=== PATIENT | female | born 1965 | race Caucasian/White ===

== ENCOUNTER 2017-07-07 06:51 | Day surgery (SDC) | payer OTHER, BC, SELFPAY ==
[2017-07-03 09:47] VITALS: BMI 36.1
[2017-07-07] VITALS (13 sets, daily range): BP systolic 102–189; BP diastolic 49–85; PULSE 69–94; RESP 11–18; TEMP 36.7–37.3; O2SAT 95–99
--- NOTE | 2017-07-07 08:05 | HMH.PROC ---
[facility] Procedure Note Procedure Note:: Colonoscopy Procedure Report: Colonoscopy with cold biopsy removal and monopolar ablation to destruction of hemorrhoids Endoscopist: Caleb Piedra II, MD Referring physician: Vinny Koo MD Date of Procedure: July 07, 2017 Equipment: Olympus 180 variable stiffness pediatric colonoscope Sedation: Fentanyl 200 mg IV/ Versed 9 mg IV Indication: Mrs. Flores is a 52-year-old female who is here for initial screening colonoscopy. The patient does have a history of an anal fissure and hemorrhoids. She does have worsening of the fissure over the last few weeks and has had some heavy bleeding that was exacerbated by her Xarelto. She has been taking MiraLAX and does report 2-3 bowel movements daily with obstipation/incomplete evacuation. The patient did have breast cancer in October 2015. She did have lumpectomy and adjuvant radiation therapy. She did not take chemotherapy. The patient reports no abdominal pain, weight loss or change in bowel habits. She does have a paternal first cousin with colon cancer. Procedure: Prior to the procedure, a history and physical exam was performed, and patient's medications and allergies were reviewed. The risks, benefits and alternatives of the sedation and procedure were discussed with the patient. All questions were answered and informed consent was obtained. The patient was brought to the procedure room. Patient identification and proposed procedure were verified by the physician and the nurse. The patient was placed in a left lateral decubitus position and the scope was passed under direct vision. Throughout the procedure, the patient's blood pressure, pulse, and oxygen saturations were monitored continuously. The colonoscopy was accomplished without difficulty. The patient tolerated the procedure well. Findings: On digital rectal examination there was increased rectal tone with minor anal stenosis. There was a healing posterior midline anal fissure. There were no external hemorrhoids. The colonoscope was introduced through the anal canal to the rectum and advanced to the cecum. The ileocecal valve and appendiceal orifice were identified. The scope was advanced a short distance into the ileum which appeared grossly normal. The scope was then withdrawn into the colon. The cecum, ascending and transverse colon and mucosa were grossly normal. There were scattered diverticuli throughout the descending and sigmoid colon (LEFT colon). The rectum itself had a diminutive 4-5 mm polyp that was removed via cold biopsy. Upon retroflexion within the rectum there were grade 1 internal hemorrhoids. The hemorrhoids were ablated using monopolar ablation to destruction of 4 columns. Impression: 1. Diminutive rectal polyp 2. Mild left-sided diverticulosis 3. Grade 1 internal hemorrhoids status post monopolar ablation to destruction 4. Posterior midline anal fissure with some increased anal sphincter tone Plan: I will follow-up the polyp histology. I would like for the patient to resume a fiber bowel regimen with MiraLAX plus fiber (bulk). I will initiate nitroglycerin ointment for her fissure. I do believe that the polyp is hyperplastic and if so, she will not require surveillance again for 10 years.
--- NOTE | 2017-07-07 08:33 | P.PCN_ITS ---
[facility] Procedure Note Procedure Note:: Colonoscopy Procedure Report: Colonoscopy with cold biopsy removal and monopolar ablation to destruction of hemorrhoids Endoscopist: Caleb Peidra II, MD Referring physician: Vinny Koo MD Date of Procedure: July 07, 2017 Equipment: Olympus 180 variable stiffness pediatric colonoscope Sedation: Fentanyl 200 mg IV/ Versed 9 mg IV Indication: Mrs. Flores is a 52-year-old female who is here for initial screening colonoscopy. The patient does have a history of an anal fissure and hemorrhoids. She does have worsening of the fissure over the last few weeks and has had some heavy bleeding that was exacerbated by her Xarelto. She has been taking MiraLAX and does report 2-3 bowel movements daily with obstipation/ incomplete evacuation. The patient did have breast cancer in October 2015. She did have lumpectomy and adjuvant radiation therapy. She did not take chemotherapy. The patient reports no abdominal pain, weight loss or change in bowel habits. She does have a paternal first cousin with colon cancer. Procedure: Prior to the procedure, a history and physical exam was performed, and patient' s medications and allergies were reviewed. The risks, benefits and alternatives of the sedation and procedure were discussed with the patient. All questions were answered and informed consent was obtained. The patient was brought to the procedure room. Patient identification and proposed procedure were verified by the physician and the nurse. The patient was placed in a left lateral decubitus position and the scope was passed under direct vision. Throughout the procedure, the patient's blood pressure, pulse, and oxygen saturations were monitored continuously. The colonoscopy was accomplished without difficulty. The patient tolerated the procedure well. Findings: On digital rectal examination there was increased rectal tone with minor anal stenosis. There was a healing posterior midline anal fissure. There were no external hemorrhoids. The colonoscope was introduced through the anal canal to the rectum and advanced to the cecum. The ileocecal valve and appendiceal orifice were identified. The scope was advanced a short distance into the ileum which appeared grossly normal. The scope was then withdrawn into the colon. The cecum, ascending and transverse colon and mucosa were grossly normal. There were scattered diverticuli throughout the descending and sigmoid colon (LEFT colon). The rectum itself had a diminutive 4-5 mm polyp that was removed via cold biopsy. Upon retroflexion within the rectum there were grade 1 internal hemorrhoids. The hemorrhoids were ablated using monopolar ablation to destruction of 4 columns. Impression: 1. Diminutive rectal polyp 2. Mild left-sided diverticulosis 3. Grade 1 internal hemorrhoids status post monopolar ablation to destruction 4. Posterior midline anal fissure with some increased anal sphincter tone Plan: I will follow-up the polyp histology. I would like for the patient to resume a fiber bowel regimen with MiraLAX plus fiber (bulk). I will initiate nitroglycerin ointment for her fissure. I do believe that the polyp is hyperplastic and if so, she will not require surveillance again for 10 years.
== END 2017-07-07 09:35 | disposition home or self-care (01) ==
LOC: OUTP 06:52
PROVIDERS: Family Provider Internal Medicine; PCP Internal Medicine; Visit Provider Internal Medicine Gastroenterology
PROC: 0DJD8ZZ Inspection of Lower Intestinal Tract, Via Natural or Artificial Opening Endoscopic (ICD-10-PCS; CPT 45378; principal; 2017-07-07 08:00)
DX: Z12.11 Encounter for screening for malignant neoplasm of colon (principal); K60.1 Chronic anal fissure; K62.1 Rectal polyp; K64.0 First degree hemorrhoids; K57.30 Diverticulosis of large intestine without perforation or abscess without bleeding
CPT/HCPCS: 45380; 46930; 99152; 99153

== ENCOUNTER → 2017-09-10 08:10 | Outpatient (CLI) | payer OTHER, BC, SELFPAY ==
[2017-09-11 09:11] LABS: FSH 27.8 mIU/mL (.); LH 16.1 mIU/mL (.)
== END ==
PROVIDERS: Visit Provider Nurse Practitioner Obstetrics & Gynecology
DX: N93.9 Abnormal uterine and vaginal bleeding, unspecified (principal); N95.0 Postmenopausal bleeding
CPT/HCPCS: 36415; 83001; 83002

== ENCOUNTER → 2017-10-28 07:54 | Outpatient (CLI) | payer OTHER, BC, SELFPAY ==
[2017-10-28 09:52] LABS: Free Thyroxine Index 3.2 ug/dL (5.93-13.13); T4 (Thyroxine) 9.6 ug/dl (4.7-13.3); Triiodothryronine (T3) Uptake 33 % (31-39)
[2017-10-30 21:12] LABS: Triiodothyronine (T3) Free 3.6 pg/mL (2.0-4.4)
== END ==
PROVIDERS: Family Provider Internal Medicine; PCP Internal Medicine; Visit Provider Nurse Practitioner Obstetrics & Gynecology
DX: Z01.419 Encounter for gynecological examination (general) (routine) without abnormal findings (principal)
CPT/HCPCS: 84436; 84479; 84481

== ENCOUNTER → 2017-12-11 08:25 | Outpatient (POV) | payer OTHER, BC, SELFPAY | PROVIDERS: Family Provider Internal Medicine; PCP Internal Medicine; Visit Provider Dermatology | DX: Z00.00 Encounter for general adult medical examination without abnormal findings (principal) ==

== ENCOUNTER 2020-03-10 13:44 | Outpatient (RCR) | payer OTHER, BC, SELFPAY | END 2020-03-10 14:20 | disposition home or self-care (01) | LOC: PT 13:44 | PROVIDERS: Visit Provider Internal Medicine | DX: G56.02 Carpal tunnel syndrome, left upper limb (principal) ==

== ENCOUNTER → 2020-12-25 09:56 | Outpatient (CLI) | payer OTHER, BC, SELFPAY ==
--- NOTE | 2020-12-25 09:58 | XR_ITS ---
PROCEDURE: XR DEXA AXIAL SKELETON CLINICAL HISTORY: POST MENAPAUSAL COMPARISON: CR,DX BONE3 BONE DENSITOMETRY(HIP:LT SPINE from 04/15/2016 FINDINGS: The right hip BMD is 0.612 with a T-score of -2.1. The left hip BMD is 0.637 with a T-score of -1.9. The lumbar spine BMD is 0.816 with a T-score of -2.1. FRAX score: Major osteoporotic fracture: 8.2 percent Hip fracture: 1.1 percent IMPRESSION: This patient is considered osteopenic according to the World Health Organization criteria. Bone density is between 10 and 25 percent below young normal. Fracture risk is moderate. Treatment is advised. Based on these results a follow-up exam is recommended in 2 year. Dictated by: Maria Dolores Stokes 12/25/2020 13:53 Maria Dolores Stokes in [place] 12/25/2020 13:53
== END ==
PROVIDERS: PCP Internal Medicine; Visit Provider Internal Medicine
DX: M85.89 Other specified disorders of bone density and structure, multiple sites (principal); Z78.0 Asymptomatic menopausal state
CPT/HCPCS: 77080

== ENCOUNTER → 2021-09-18 10:30 | Outpatient (POV) | payer OTHER, BC, SELFPAY | PROVIDERS: Visit Provider Dermatology | DX: Z00.00 Encounter for general adult medical examination without abnormal findings (principal) ==

== ENCOUNTER → 2021-12-17 16:30 | Outpatient (CLI) | payer OTHER, BC, SELFPAY | PROVIDERS: Visit Provider Podiatrist | DX: M79.671 Pain in right foot (principal); M79.672 Pain in left foot; L84 Corns and callosities; B95.7 Other staphylococcus as the cause of diseases classified elsewhere | CPT/HCPCS: 87070; 87077; 87102; 87186; 87205; 87206 ==

== ENCOUNTER → 2022-01-08 07:11 | Outpatient (CLI) | payer OTHER, BC, SELFPAY ==
--- NOTE | 2022-01-08 07:15 | XR_ITS ---
FINAL REPORT CLINICAL HISTORY: PAIN FINDINGS: RIGHT FOOT Three weight-bearing views of the right foot demonstrate no acute fracture or dislocation. There is mild hallux valgus deformity. There is mild degenerative change. There is a small plantar calcaneal spur. The soft tissues are unremarkable. IMPRESSION: Mild degenerative change with no acute bony abnormality. Reviewed, Interpreted and Dictated by Jakob Fabian III, MD Transcribed by Anabel Gant Authenticated and [facility]
--- NOTE | 2022-01-08 07:15 | XR_ITS ---
FINAL REPORT CLINICAL HISTORY: PAIN FINDINGS: LEFT FOOT Three weight-bearing views of the left foot demonstrate no acute fracture or dislocation. There is mild degenerative change. There is a plantar calcaneal spur. The soft tissues are unremarkable. IMPRESSION: Mild degenerative change with no acute bony abnormality. Reviewed, Interpreted and Dictated by Jakob Fabian III, MD Transcribed by Anabel Gant Authenticated and [facility]
== END ==
PROVIDERS: PCP Internal Medicine; Visit Provider Podiatrist
DX: L84 Corns and callosities (principal); M79.672 Pain in left foot; M79.671 Pain in right foot
CPT/HCPCS: 73630

== ENCOUNTER → 2022-06-11 09:48 | Outpatient (CLI) | payer OTHER, BC, SELFPAY ==
--- NOTE | 2022-06-11 09:55 | XR_ITS ---
FINAL REPORT CLINICAL HISTORY: LUMBAGO FINDINGS: 4 views were obtained. There is no acute fracture. There is no malalignment. Moderate degenerative change of the facet joints of L4-L5 and L5-S1. IMPRESSION: Moderate facet arthropathy at L4-L5 and L5-S1. Reviewed, Interpreted and Dictated by Jayme Garcia MD Transcribed by Keron Hills Authenticated and [facility]
--- NOTE | 2022-06-11 09:55 | XR_ITS ---
FINAL REPORT CLINICAL HISTORY: LUMBAGO FINDINGS: AP PELVIS: A single view of the pelvis was obtained. There is no acute fracture or dislocation. Visualized joint spaces are normally aligned. Soft tissues are unremarkable. IMPRESSION: No acute process. Reviewed, Interpreted and Dictated by Jayme Garcia MD Transcribed by Keron Hills Authenticated and [facility]
== END ==
PROVIDERS: PCP Internal Medicine; Visit Provider Internal Medicine
DX: M54.41 Lumbago with sciatica, right side (principal); M54.42 Lumbago with sciatica, left side
CPT/HCPCS: 72110; 72170

== ENCOUNTER → 2022-06-12 10:19 | Outpatient (CLI) | payer OTHER, BC, SELFPAY ==
--- NOTE | 2022-06-12 10:24 | MR_ITS ---
FINAL REPORT TECHNIQUE: Multiplanar MR without gadolinium enhancement CLINICAL HISTORY: LOWER BACK PAIN FINDINGS: Sagittal images show normal vertebral height. There is no acute fracture. Alignment is normal. A hemangioma is noted in the left L3 vertebral body. Marrow signal pattern is otherwise normal. L1-2: Unremarkable L2-3: Unremarkable L3-4: Unremarkable L4-5: A mild annular disc bulge is present with moderate facet arthropathy and mild central canal stenosis. There is mild bilateral neural foraminal narrowing. L5-S1: A mild annular disc bulge is present with moderate facet arthropathy and borderline central canal stenosis. There is mild bilateral neural foraminal narrowing. IMPRESSION: Degenerative changes in the lower lumbar spine as above. Reviewed, Interpreted and Dictated by Jayme Garcia MD Transcribed by Anabel Gant Authenticated and [facility]
== END ==
PROVIDERS: PCP Internal Medicine; Visit Provider Internal Medicine
DX: M54.50 Low back pain, unspecified (principal)
CPT/HCPCS: 72148; 76376

== ENCOUNTER 2022-07-16 12:55 | Day surgery (SDC) | payer OTHER, BC, SELFPAY ==
[2022-07-16 13:08] VITALS: BP 151/94; PULSE 80; RESP 18; TEMP 36.9; O2SAT 99; BMI 35.2
[2022-07-16 13:36] VITALS: BP 141/79; PULSE 71; RESP 18; O2SAT 99
[2022-07-16 13:37] VITALS: BP 141/79; PULSE 71; RESP 18; O2SAT 99
[2022-07-16 13:45] VITALS: BP 143/68; PULSE 69; RESP 18; O2SAT 99
--- NOTE | 2022-07-16 13:54 | EXP.PAIN.PRO ---
Procedure Date: 07/16/22 Time: 13:45 Anesthesiologist:: Laron Brian CRNA Complications:: None Pre-procedure Diagnosis:: Degenerative disc disease lumbar spine multilevels. Lumbar radiculopathy. Lumbar disc bulge L4-5, L5-S1 Post-procedure Diagnosis:: Same. Indications for Procedure:: This patient is a very pleasant 57-year-old female that comes to our clinic today for initial evaluation regarding some slight lumbar back pain. However, intense left hip and leg radicular symptoms to the foot. She describes the radicular pain is constant, dull, sharp and stabbing at times. She has difficulty sitting for any length of time. After 30 to 45 seconds of sitting she has to stand for any counter relief. She rates her pain today 01/16. I reviewed the patient's lumbar MRI with her. MRI reveals degenerative disc lumbar spine multiple levels. Lumbar disc bulge at L4-5, L5-S1. I discussed treatment options with her today. She wishes to proceed with lumbar epidural steroid injection at the L4-5 level. Procedure Details:: Procedure: Lumbar epidural steroid injection under fluoroscopy Informed consent was obtained and the risks and benefits of the procedure were explained to the patient. The patient was taken to the procedure room and noninvasive monitors placed, including noninvasive blood pressure cuff and pulse oximeter. The back was viewed using C-arm Fluoroscopy and prepped using Chloraprep as a cleansing solution and the L4-L5 interspace was palpated. Skin and subcutaneous tissues were anesthetized using lidocaine 1.5% and a 25-gauge needle. After this, an 18-gauge Touhy epidural needle was placed into the L4-L5 interspace and advanced using fluoroscopic guidance and loss of resistance to air until the epidural space was encountered. After confirmation of needle placement in the epidural space, with dye, a solution containing normal saline, 3 mL and Depo-Medrol 80 mg were incrementally injected into the lumbar epidural space. The patient tolerated the procedure well with no complications. The patient was observed in the Pain Clinic and then discharged home neurologically intact. Plan and Disposition:: Patient was discharged without incident.
== END 2022-07-16 13:45 | disposition home or self-care (01) ==
LOC: SC.PAINP 12:56
PROVIDERS: PCP Internal Medicine; Visit Provider Nurse Anesthetist, Certified Registered
DX: M51.16 Intervertebral disc disorders with radiculopathy, lumbar region (principal)
CPT/HCPCS: 62323; J1040; Q9966

== ENCOUNTER → 2022-08-08 08:27 | Outpatient (POV) | payer OTHER, BC, SELFPAY ==
[2022-08-08 08:37] VITALS: BP 138/77; PULSE 75; RESP 18; O2SAT 99; BMI 35.2
--- NOTE | 2022-08-08 08:42 | EXP.PAIN.SOA ---
[facility] Pain Management SOAP Note Subjective:: Patient is a pleasant 57-year-old female who presents today for follow-up of lumbar epidural steroid injection at L4-L5 on 07/16/2022. We are currently treating the patient for degenerative disc disease of lumbar spine multilevels with lumbar radiculopathy symptoms, multilevel lumbar disc bulge. Today she states that she has had at least 80% improvement following this injection and feels like her pain is much better. Patient states she has been able to increase her activity with decreased pain symptoms. She does rate her pain a 3 out of 10 today. She states she is still having additional pain along her low back at the left side that radiates into her left hip and down her left leg to her knee. Patient does describe this as an aching, throbbing, pulling sensation that is worse with increased activity. Patient states she does frequently have to change positions in order to reduce the pain. Patient does states she cannot tolerate prolonged sitting, standing, walking due to this pain. She does state that it does interfere with some of her activities of daily living such as cooking and cleaning. She also states she does have pain along her right hip as well. She states she did recently have a massage last week and it was very painful at her hips and that felt that it was very tight. Patient does take [id number] ibuprofen or Motrin however she states following her epidural she has not used this as much. She is not on any scheduled medications. Her Wayne is [id number]. Its been reviewed and appropriate. Review of Systems: General: No recent weight changes, no fever, no sleep disturbances Respiratory: No cough, no shortness of air, no recurring pulmonary infections Cardiovascular/peripheral vascular: No chest pain, no palpitations, no edema, no shortness of breath Gastrointestinal: No new onset incontinence, normal bowel movements reported Genitourinary: No new onset incontinence Musculoskeletal: Low back pain, left leg pain, bilateral hip pain Psychiatric: [Normal mood/affect] Neurological: [Denies weakness in extremities], [denies balance issues] Objective:: Physical Exam: General: Alert and oriented x3, no acute distress, pleasant and cooperative Lungs: Respirations even and unlabored, symmetrical chest expansion Eyes: PERRL Musculoskeletal: Flexion and extension of lumbar [spine] somewhat guarded secondary to pain, [antalgic gait noted] point tenderness at left SI and bilateral greater trochanteric bursa's with positive left Verónica's, Dixon's, Gaenslen's, compression and distraction exam Neurological: Speech clear, no gross sensory deficit Assessment:: Degenerative disc disease of lumbar spine with lumbar radiculopathy symptoms, multilevel disc bulge Plan:: Patient has had significant improvement of her low back pain following her lumbar epidural however she continues to experience pain on the left side that radiates into her hip and groin as well as down her left leg to her knee. Patient did have limited range of motion of her lumbar spine during today's visit as well as positive point tenderness at her left SI and bilateral greater trochanteric bursa's. She did present with a positive left Verónica's, Dixon's, Gaenslen's, compression and distraction exam. I have discussed with the patient that she may benefit from a left SI injection and bilateral greater trochanteric bursa injections. Risk and benefits were discussed with the patient and she would like to proceed forward with this plan of care. I will also order the patient a compounding cream at today's visit. Patient will be scheduled for a left SI and bilateral greater trochanteric bursa injections. Patient has been instructed to contact the clinic with any concerns before the next appointment. Dr. Shen has reviewed this note and agrees with this plan of care. This note was dictated using voice recognition software and make contain errors or omissions.
== END ==
PROVIDERS: PCP Internal Medicine; Visit Provider Nurse Practitioner Family
DX: M51.16 Intervertebral disc disorders with radiculopathy, lumbar region (principal)
CPT/HCPCS: 99212; G0463

== ENCOUNTER 2022-08-20 07:42 | Day surgery (SDC) | payer OTHER, BC, SELFPAY ==
[2022-08-20 09:27] VITALS: BP 136/87; PULSE 83; RESP 18; TEMP 36.3; O2SAT 99; BMI 35.2
[2022-08-20 09:49] VITALS: BP 155/86; PULSE 84; RESP 18; O2SAT 98
[2022-08-20 09:52] VITALS: BP 155/86; PULSE 84; RESP 18; O2SAT 98
[2022-08-20 09:57] VITALS: BP 124/62; PULSE 79; RESP 18; O2SAT 99
--- NOTE | 2022-08-20 12:29 | P.PCN_ITS ---
Procedure Date: 08/20/22 Time: 09:00 Anesthesiologist:: Laron Brian CRNA Complications:: None Pre-procedure Diagnosis:: Left sacroiliitis. Bilateral trochanteric bursitis. Post-procedure Diagnosis:: Same. Indications for Procedure:: Patient is a very pleasant 57-year-old female comes our clinic today for left sacroiliac joint injection as well as bilateral trochanteric bursa injection. Patient has extreme point tenderness over each of these areas. She rates her pain 5/10. Patient states she has difficulty transitioning from sitting to standing. Also lying in bed on either side brings extreme pain over the bursa sites. Procedure Details:: Procedure: Left sacroiliac injection under fluoroscopy Informed consent was obtained and the risk and benefits of the procedure were explained to the patient.~ The patient was taken to the procedure room and noninvasive monitors were placed including noninvasive blood pressure cuff and pulse oximeter.~ The patient was placed prone on the procedure table.~ The~ left hip was cleansed using Betadine as a cleansing solution.~ C-arm fluorosocpy was used to view the left SI joint.~ The skin and subcutaneous tissues were anesthetized using Lidocaine 1.5% and a 25-gauge needle.~ After this, a 22-gauge spinal needle was inserted under fluoroscopic guidance into the inferior aspect of the left SI joint.~ Omnipaque dye was injected and a good spread was seen throughout the joint.~ After this, approximately 5 mL of bupivacaine 0.25% and Depo-Medrol 40 mg was incrementally injected into the sacroiliac joint.~ The patient tolerated the procedure well with no complications.~ The patient was observed in the Pain Clinic for a period of 30-45 minutes, then discharged home neurologically intact.~ Informed consent was obtained and the risks and benefits of the procedure were explained to the patient.~ The patient was taken to the procedure room and noninvasive monitors were placed including a noninvasive blood pressure cuff and pulse oximeter.~ The patient was placed prone on the procedure table. Both hips were cleansed using Betadine as a cleansing solution. C-arm fluoroscopy was used to view the right trochanteric bursa joint.~ The skin and subcutaneous tissues were anesthetized using lidocaine 1.5% and a 25-gauge needle.~ After this, a 22- gauge spinal needle was inserted under fluoroscopic guidance into the inferior aspect of the right trochanteric bursa.~ Omnipaque dye was injected and good spread was seen throughout the joint.~ After this, approximately 5 mL of bupivacaine, 0.25% and Depo-Medrol, 40 mg was incrementally injected into the right sacroiliac joint. We then moved to the left trochanteric bursa joint.~ The skin and subcutaneous tissues were anesthetized using lidocaine 1.5% and a 25-gauge needle.~ After this, a 22-gauge spinal needle was inserted under fluoroscopic guidance into the inferior aspect of the left trochanteric bursa joint.~ Omnipaque dye was injected and good spread was seen throughout the joint. After this, approximately 5 mL of bupivacaine, 0.25% and Depo-Medrol, 40 mg was incrementally injected into the left sacroiliac joint.~ The patient tolerated the procedure well with no complications. The patient was observed in the Pain Clinic and then was discharged home neurologically intact. Plan and Disposition:: Patient was discharged without incident.
== END 2022-08-20 09:57 | disposition home or self-care (01) ==
LOC: SC.PAINP 07:43
PROVIDERS: PCP Internal Medicine; Visit Provider Nurse Anesthetist, Certified Registered
DX: M46.1 Sacroiliitis, not elsewhere classified (principal); M70.61 Trochanteric bursitis, right hip; M70.62 Trochanteric bursitis, left hip
CPT/HCPCS: 20610; 27096; 77002; G0260; J1030

== ENCOUNTER → 2022-09-04 08:28 | Outpatient (POV) | payer OTHER, BC, SELFPAY ==
[2022-09-04 08:35] VITALS: BP 137/77; PULSE 67; RESP 18; O2SAT 98; BMI 35.2
--- NOTE | 2022-09-04 08:44 | A.OFFVIS_ITS ---
[facility] Pain Management SOAP Note Subjective:: Patient is a pleasant 57-year-old female who presents today for follow-up of left SI injection on 08/20/2022. We are currently treating the patient for degenerative disc disease of lumbar spine with lumbar radiculopathy symptoms multilevel, multilevel disc bulge. Today she rates her pain a 3 out of 10. Patient denies any new trauma or injury. Patient denies any change location or type of pain she experiences. She states she has had at least 80 to 85% relief following this injection and feels like it still continuing to provide additional relief. She states that she has been able to increase her activity and actually went back to the gym starting on Friday. She does also state that the tingling in her right toes has gone away now. Patient does take [id number] ibuprofen and Motrin as needed. Patient is not on any scheduled medications. Her Wayne is [phone]. Its been reviewed and appropriate. Review of Systems: General: No recent weight changes, no fever, no sleep disturbances Respiratory: No cough, no shortness of air, no recurring pulmonary infections Cardiovascular/peripheral vascular: No chest pain, no palpitations, no edema, no shortness of breath Gastrointestinal: No new onset incontinence, normal bowel movements reported Genitourinary: No new onset incontinence Musculoskeletal: Low back pain Psychiatric: [Normal mood/affect] Neurological: [Denies weakness in extremities], [denies balance issues] Objective:: Physical Exam: General: Alert and oriented x3, no acute distress, pleasant and cooperative Lungs: Respirations even and unlabored, symmetrical chest expansion Eyes: PERRL Musculoskeletal: Flexion and extension of lumbar [spine] somewhat guarded secondary to pain, [antalgic gait noted] Neurological: Speech clear, no gross sensory deficit Assessment:: Degenerative disc disease of lumbar spine with lumbar radiculopathy symptoms multilevel, multilevel disc bulge Plan:: Patient has had significant improvement of her pain symptoms following her injection and does not require any additional injective therapy. Patient will return to clinic in 1 month for reevaluation of symptoms, medication refill and follow-up. Patient has been instructed to contact the clinic with any concerns before the next appointment. Dr. Shen has reviewed this note and agrees with this plan of care. This note was dictated using voice recognition software and make contain errors or omissions. PFSH PFSH Disclaimer: The information contained in this section may have been updated after the patient was seen, as this information can be updated by other users. Medical History Breast cancer GERD (gastroesophageal reflux disease) Surgical History H/O tubal ligation History of History of lumpectomy Hx laparoscopic cholecystectomy Family History Other No significant family history Social History Smoking Status: Never smoker alcohol intake: never substance use type: denies use current occupational status: employed Travel in the last 8 weeks: None household members: spouse housing: house
== END ==
PROVIDERS: PCP Internal Medicine; Visit Provider Nurse Practitioner Family
DX: M51.16 Intervertebral disc disorders with radiculopathy, lumbar region (principal)
CPT/HCPCS: 99212; G0463

== ENCOUNTER 2023-09-02 06:55 | Outpatient (CLI) | payer OTHER, BC, SELFPAY ==
[2023-09-02 07:18] LABS: Basophils # 0.1 K/mm3 (0-0.2); Basophils % 1.2 % (0.1-2.0); Eosinophils # 0.2 K/mm3 (0.0-0.4); Eosinophils % 4.4 % (0.1-12.0); Hematocrit 43.7 % (37.0-47.0); Hemoglobin 14.4 g/dL (12.2-16.2); Lymphocytes # 1.8 K/mm3 (0.7-4.5); Lymphocytes % 35.9 % (10-50); Mean Corpuscular Volume 99.9 fl (81-99); Mean Platelet Volume 8.5 fl (7.4-10.4); Monocytes # 0.3 K/mm3 (0.1-1.0); Monocytes % 5.4 % (1.7-9.3); Neutrophils # 2.7 K/mm3 (1.8-7.8); Neutrophils % 53.2 % (37.0-80.0); Platelet Count 226 K/mm3 (142-424); Red Blood Count 4.38 M/mm3 (4.20-5.40); White Blood Count 5.1 K/mm3 (4.8-10.8)
[2023-09-02 08:07] LABS: Alanine Aminotransferase 27 U/L (12-78); Albumin Level 4.2 g/dl (3.5-5.0); Albumin/Globulin Ratio 1.5 (1.1-1.8); Alkaline Phosphatase 83 U/L (38-126); Anion Gap 9.3 mEq/L (5-15); Aspartate Amino Transferase 33 U/L (14-36); Bilirubin,Total 0.5 mg/dl (0.2-1.3); Blood Urea Nitrogen 16 mg/dl (7-17); Calcium 9.4 mg/dl (8.4-10.2); Carbon Dioxide 27 mmol/L (22.0-30.0); Chloride 106 mmol/L (98-107); Chol/HDL Ratio 4.6 (1-3.5); Cholesterol 245 mg/dl (140-200); Estimated Glomerular Filt Rate 86 ml/min (>60); GFR (African American) 104 ML/MIN (>60); Globulin 2.8 g/dL (1.3-3.2); Glucose 107 mg/dl (74-100); HDL Cholesterol 53 mg/dl (40-60); Potassium 4.3 mmoL/L (3.5-5.1); Sodium 138 mmol/L (136-145); Triglycerides 100 mg/dl (30-150); VLDL Cholesterol 20 mg/dL (0-40)
[2023-09-02 08:18] LABS: Direct LDL Cholesterol 125.13 mg/dL (100-129)
[2023-09-02 08:23] LABS: T4 (Thyroxine) 8.8 ug/dl (5.53-11.0)
[2023-09-02 08:24] LABS: 25-OH Vitamin D, Total 34.2 ng/mL (30-100)
[2023-09-02 08:37] LABS: Thyroid Stimulating Hormone 3.24 uIU/mL (0.465-4.68)
[2023-09-02 08:56] LABS: Vitamin B12 639 pg/mL (239-931)
[2023-09-02 09:49] LABS: Ferritin 95.2 ng/ml (11.1-264)
[2023-09-02 10:39] LABS: Hemoglobin A1C 6.2 % (4.0-6.0)
[2023-09-03 12:35] LABS: Insulin Level Total 14.4 uIU/mL (2.6-24.9)
[2023-09-03 13:11] LABS: Estradiol <5.0 pg/mL (.); Progesterone 0.1 ng/mL (.); Triiodothyronine (T3) Free 3.3 pg/mL (2.0-4.4)
[2023-09-11 11:22] LABS: Triiodothyronine (T3) Reverse 15.9
== END 2023-09-02 23:59 ==
LOC: LAB 06:56
PROVIDERS: PCP Nurse Practitioner Family; Visit Provider Nurse Practitioner Family
DX: R63.5 Abnormal weight gain (principal); R23.2 Flushing; Z13.0 Encounter for screening for diseases of the blood and blood-forming organs and certain disorders involving the immune mechanism; Z13.220 Encounter for screening for lipoid disorders; R73.09 Other abnormal glucose; E78.5 Hyperlipidemia, unspecified; Z68.35 Body mass index [BMI] 35.0-35.9, adult; Z79.899 Other long term (current) drug therapy
CPT/HCPCS: 36415; 80053; 80061; 82306; 82533; 82607; 82670; 82728; 83036; 83525; 84144; 84436; 84443; 84481; 84482; 85025

== ENCOUNTER 2024-04-15 06:32 | Emergency (ER) | payer OTHER, BC, SELFPAY ==
[2024-04-15 06:42] VITALS: BP 133/81; PULSE 87; RESP 18; TEMP 36.9; O2SAT 98; BMI 35.2
--- NOTE | 2024-04-15 06:48 | ED_ITS ---
Discharge Plan Disposition Patient Disposition: Home, Self-Care Condition: Good Prescriptions Prescriptions: No Action ibuprofen 600 mg tablet 600 mg PO PRN tobramycin-dexamethasone 0.3-0.1 % ointment 1 applic ophthalmic (eye) Q8H 5 Days Qty: 3.5 0RF Activity Restrictions/Add. Instructions Additional Instructions/Restrictions: You were evaluated in the ER and are appropriate for discharge at this time. Keep the wound clean and dry. You can shower/bathe like normal. The glue will come off on its own. Monitor yourself for signs of concussion like blurry vision, difficulty focusing , headache, nausea. If these develop stop what you are doing and rest for the rest of the day. Drink plenty of water. Avoid things that cause eyestrain. If you develop any concerning signs or symptoms such as stroke-like symptoms, uncontrollable vomiting, severe headache, or anything else you are worried about, immediately return to the ER for reevaluation. Clinical Impressions Clinical Impression: Fall, Laceration of scalp Print Language Print Language: Bahraini Discharge ED Provider: Mihaela Plasencia General Adult HPI General Chief complaint: Fall Stated complaint: fall 544 t, head injury Time Seen by Provider: 04/15/24 06:35 Mode of Arrival: Ambulatory Source of Information: Patient Limitations: No Limitations Description of Symptoms (Recalled from ER Triage Doc. by RN): Pt ambulatory to ED with cc of fall. Pt states she tripped at her house over running boards and hit her head on a transmission. Pt denies any LOC. Pt denies taking any blood thinners. Pt denies any pain at this time. Pt is A&Ox4. Pt states having small visual changes. Pt states having nausea. Pt has small laceration to right side of her head. History of Present Illness HPI narrative: 59-year-old female presents to the ER after fall. Patient states she tripped at her house over a running board that was on the ground and struck the right side of her head on a transmission. She did not lose consciousness. Patient does not take any blood thinners. Patient denies headache, dizziness, numbness, tingling, weakness. She reports she has slight nausea but no vomiting. She states she saw stars but that has resolved. She has no vision changes at this time. Patient reports a cut on the right side of her head that was bleeding. She denies other pain or injuries, ROS otherwise negative. Related Data Home Medications ?Medication ?Instructions ?Recorded ?Confirmed ibuprofen 600 mg tablet 600 mg PO PRN 11/27/22 12/01/23 Previous Rx's ?Medication ?Instructions ?Recorded tobramycin-dexamethasone 0.3 %-0.1 1 applic ophthalmic (eye) Q8H 5 03/11/24 % eye ointment days #3.5 grams Allergies Allergy/AdvReac Type Severity Reaction Status Date / Time codeine Allergy Mild Abdominal Verified 12/01/23 13:04 Pain PFSH PFS Disclaimer: The information contained in this section may have been updated after the patient was seen, as this information can be updated by other users. Medical History Hot flashes due to menopause GERD (gastroesophageal reflux disease) Breast cancer Right ureteral calculus Surgical History Hx laparoscopic cholecystectomy H/O tubal ligation History of History of lumpectomy Family History Other No significant family history Social History Smoking Status: Never smoker alcohol intake: never substance use type: denies use current occupational status: employed Travel in the last 8 weeks: None household members: spouse housing: house Other Medical History Have you received the Flu Vaccine for this season: Yes Have you received the Pneumonia Vaccine: No ROS Obtained: Yes Systems reviewed as appropriate & no additional complaints except as documented Positive ROS per HPI Physical Exam General General appearance: alert and in no apparent distress Head Head exam: normocephalic and other (1 cm laceration over the right parietal scalp, well-approximated, slow venous oozing) Eye Eye exam: Present PERRL, EOMI and other (No raccoon eyes) ENT ENT exam: Present mucous membranes moist, TM's normal bilaterally (No hem otympanum) and other (No Sherman sign) Neck Neck exam: Present normal inspection and full ROM; Absent tenderness Chest Chest inspection: Present symmetric chest wall rise; Absent tenderness Respiratory Respiratory exam: Present normal lung sounds bilaterally; Absent respiratory distress, wheezes or stridor Cardiovascular Cardiovascular exam: Present regular rate and normal rhythm Extremities Exam Extremities exam: Present full ROM; Absent tenderness, edema or joint swelling Neurological Exam Neurological exam: Present alert and oriented X3; Absent motor sensory deficit Psychiatric Psychiatric exam: Present normal affect and normal mood Skin Skin exam: Present warm and dry Medical Decision Making Medical Records Screening: Per USPSTF and CDC recommendations, given the prevalence of disease in our region, it is our hospital?s policy to screen for HIV and viral Hepatitis for all patients aged 18 and over and those with ongoing risk factors. Wayne Inquiry Pt receiving controlled substance: No Vital Signs: 04/15/24 06:42 04/15/24 06:53 Temperature 98.4 F 98.4 F Temperature Source Temporal Artery Scan Oral Pulse Rate 87 Pulse Rate [Left Radial] 87 Respiratory Rate 18 18 Blood Pressure 133/81 Blood Pressure [Right Arm] 133/81 Blood Pressure Mean [Right Arm] 98 Blood Pressure Source Automatic Cuff Blood Pressure Source [Right Arm] Automatic Cuff Blood Pressure Position Sitting 02 Sat by Pulse Oximetry 98 Oxygen Delivery Method Room Air Room Air Orders (Tests/Meds): ED MEDICATIONS Discontinued Medications Generic Name Dose Route Start Last Admin Trade Name Freq PRN Reason Stop Dose Admin Acetaminophen 1,000 mg 04/15/24 06:45 04/15/24 06:49 Acetaminophen 500mg Tab PO 04/15/24 06:46 1,000 mg ONCE ONE Administration Medical Decision Narrative: In summary, this 59-year-old female presents to the emergency department today with fall, right sided scalp laceration. On initial evaluation patient is hemodynamically stable, afebrile, GCS 15, no neurologic deficits, no findings of skull fracture or deformity, small laceration on the right parietal scalp which still has slow venous oozing, no C-spine tenderness, remainder of exam benign. Differential diagnosis includes but is not limited to scalp laceration, I considered the possibility of skull fracture or intracranial bleed but have extreme low suspicion for these, also considered C-spine injury but have extreme low suspicion for this. I considered head and C-spine CT, however these are not indicated by Nexus criteria. Wound was cleaned with saline. Right parietal scalp laceration repaired. See procedure note for details. Patient is appropriate for discharge at this time. Patient was given instructions on symptomatic management, follow up instructions, and return precautions for the emergency department. Patient indicated understanding and was discharged in stable condition. Procedures Laceration Laceration 1: Site: scalp Side (If applicable): right Size (cm): 1 Description: linear Depth: simple, single layer Skin layer closed with: Dermabond Critical Care Critical Care Time Critical Care Time: No
[2024-04-15] MEDS: ACETAMINOPHEN 500MG TAB 1000 MG PO (06:49)
[2024-04-15 06:53] VITALS: BP 133/81; PULSE 87; RESP 18; TEMP 36.9; O2SAT 98
== END 2024-04-15 06:55 | disposition home or self-care (01) ==
PROVIDERS: Emergency Provider Emergency Medicine
DX: S01.01XA Laceration without foreign body of scalp, initial encounter (principal); W19.XXXA Unspecified fall, initial encounter
CPT/HCPCS: 99283

== ENCOUNTER 2024-11-10 09:10 | Emergency (ER) | payer OTHER, BC, SELFPAY ==
--- NOTE | 2024-11-10 09:12 | ECG_ITS ---
APPROVED REPORT Exam: Resting ECG HR:105 bpm ECG Measurements Heart Rate 105 AXES IL 131 P 34 QRSd 85 QRS 63 QT 335 T 43 QTc 396 Conclusion SINUS TACHYCARDIA NONSPECIFIC ST & T-WAVE ABNORMALITY No STEMI Electronically signed by : VISHAL VERGARA, 11/10/2024 10:55:39
--- NOTE | 2024-11-10 09:16 | XR_ITS ---
FINAL REPORT CLINICAL HISTORY: L chest pain COMPARISON: 05/14/2016 FINDINGS: A portable view of the chest was obtained. Cardiac and mediastinal silhouettes are within normal limits. The lungs are clear. There is no pleural effusion or pneumothorax. IMPRESSION: No acute process on this portable exam. Reviewed, Interpreted and Dictated by Kianna Guevara MD Transcribed by Rosalia Tellez Authenticated and [facility]
[2024-11-10] MEDS: ASPIRIN 81MG CHEWABLE TABLET 324 MG PO (09:19)
--- NOTE | 2024-11-10 09:21 | ED_ITS ---
Discharge Plan Disposition Patient Disposition: Home, Self-Care Condition: Good Prescriptions Prescriptions: No Action No Known Home Medications Referrals Follow up/Referrals: Ryne Crystal MD [Staff Physician, Cardiology] - See instructions Provider,MD Johanny [Referring, Medical] - See instructions Activity Restrictions/Add. Instructions Additional Instructions/Restrictions: You were evaluated in the emergency department today. As we discussed, your symptoms are very concerning, so I am recommending very close follow-up with cardiology. Please call them right away to schedule an appointment. We considered admitting you today because of your symptoms, however since you are going home, it is very important that you return right away for new or worsening symptoms or should your symptoms recur. Please also follow-up closely with your primary care provider. Clinical Impressions Clinical Impression: Chest pain Stand Alone Forms Stand Alone Forms: Work/School Release Instructions Patient Instructions: DI for Atypical Chest Pain, DI for Chest Pain Print Language Print Language: Frisian Discharge ED Provider: yKara Feng General Adult HPI General Chief complaint: Chest Pain Stated complaint: chest pain/ SOB Time Seen by Provider: 11/10/24 09:15 History of Present Illness HPI narrative: This patient is a 59-year-old female with a history of breast cancer status postlumpectomy and radiation in 2016, DVT provoked by PICC line left upper extremity and tamoxifen, prior cholecystectomy, prior tubal ligation presenting to the emergency department for evaluation with concern for chest pain and shortness of breath. Patient reports that approximately 30 minutes prior to arrival, she experienced sudden onset left-sided chest pain that occurred while she was walking around. She notes that she also became very diaphoretic, and her feet are still sweating at this time. She notes this made her very anxious, especially because of her history of blood clot. She no longer is experiencing pain, but she feels like she cannot get a good deep breath in. She states that it may be because she is anxious, but she is not sure. No other concerns or complaints noted at this time, such as fevers, cough, congestion, abdominal pain, nausea, vomiting, back pain Related Data Home Medications ?Medication ?Instructions ?Recorded ?Confirmed No Known Home Medications 11/02/24 05/12/31 Allergies Allergy/AdvReac Type Severity Reaction Status Date / Time codeine Allergy Mild Abdominal Verified 11/02/24 08:55 Pain [facility] Disclaimer: The information contained in this section may have been updated after the patient was seen, as this information can be updated by other users. Medical History Hot flashes due to menopause GERD (gastroesophageal reflux disease) Breast cancer Right ureteral calculus Surgical History Hx laparoscopic cholecystectomy H/O tubal ligation History of History of lumpectomy Family History Other No significant family history Social History Smoking Status: Never smoker alcohol intake: never substance use type: denies use current occupational status: employed Travel in the last 8 weeks?: None household members: spouse housing: house Have you lived/traveled outside US in past 30 days?: No Contact w/someone who lives/traveled outside US past 30 days?: No Exposure to someone with infectious disease in past 14 days?: No Do you have a fever (greater than 100.4 F or 38 C)?: No Have you tested positive for COVID-19?: No Exposed to someone with COVID-19 in past 14 days?: No Do you have a sore throat?: No Do you have a cough?: No Do you have any weakness?: No Do you have any diarrhea?: No Are you experiencing any unusual bleeding?: No Do you have any muscle aches/pain?: No Do you have any abdominal pain?: No Are you experiencing loss of taste or smell?: No Other Medical History Have you received the Flu Vaccine for this season: Yes Have you received the Pneumonia Vaccine: No ROS Obtained: Yes All systems reviewed & no additional complaints except as documented Physical Exam General General appearance: alert, in no apparent distress and anxious Head Head exam: atraumatic and normocephalic Eye Eye exam: Present normal appearance, PERRL and EOMI ENT ENT exam: Present normal exam, normal oropharynx, mucous membranes moist and normal external ear exam Neck Neck exam: Present normal inspection, full ROM and trachea midline; Absent tenderness Chest Chest inspection: Present normal inspection and symmetric chest wall rise; Absent tenderness Respiratory Respiratory exam: Present normal lung sounds bilaterally; Absent respiratory distress, wheezes, stridor or accessory muscle use Cardiovascular Cardiovascular exam: Present normal rhythm and tachycardia Abdominal Exam Abdominal exam: Present soft; Absent distention, tenderness or guarding Extremities Exam Extremities exam: Present normal inspection, full ROM and normal capillary refill; Absent tenderness or edema Back Exam Back exam: Present normal inspection and full ROM; Absent tenderness Neurological Exam Neurological exam: Present alert, oriented X3, CN II-XII intact and normal gait; Absent motor sensory deficit Psychiatric Psychiatric exam: Present anxious Skin Skin exam: Present warm and dry Medical Decision Making Medical Records Medical records reviewed: Yes I reviewed the patient's medical records. Screening: Per USPSTF and CDC recommendations, given the prevalence of disease in our region, it is our hospital?s policy to screen for HIV and viral Hepatitis for all patients aged 18 and over and those with ongoing risk factors. Wayne Inquiry Pt receiving controlled substance: No Vital Signs: 11/10/24 09:27 11/10/24 09:31 11/10/24 10:33 Temperature 98.7 F Temperature Source Oral Pulse Rate 78 71 Pulse Rate [Right Radial] 98 H Respiratory Rate 17 18 18 Blood Pressure 141/73 H 120/72 Blood Pressure [Right Arm] 160/79 H Blood Pressure Mean 111 91 Blood Pressure Mean [Right Arm] 106 Blood Pressure Source [Right Arm] Automatic Cuff Blood Pressure Position [Right Arm] Supine 02 Sat by Pulse Oximetry 99 97 98 Oxygen Delivery Method Room Air 11/10/24 12:00 11/10/24 12:30 Temperature Temperature Source Pulse Rate 66 66 Pulse Rate [Right Radial] Respiratory Rate 18 Blood Pressure 126/70 124/70 Blood Pressure [Right Arm] Blood Pressure Mean 87 Blood Pressure Mean [Right Arm] Blood Pressure Source [Right Arm] Blood Pressure Position [Right Arm] 02 Sat by Pulse Oximetry 98 98 Oxygen Delivery Method Room Air Lab Data Lab results reviewed: Yes I reviewed the patient's lab results. Lab Results 11/10/24 09:25: WBC 6.3, RBC 4.30, Hgb 13.7, Hct 40.1, MCV 93.3, MCH 31.9 H, MCHC 34.2, RDW 12.7, Plt Count 249, MPV 10.1, Neut % (Auto) 40.0, Lymph % (Auto) 46.3, Harnett % (Auto) 10.4 H, Eos % (Auto) 2.7, Baso % (Auto) 0.6, Neut # (Auto) 2.5, Lymph # (Auto) 2.9, Harnett # (Auto) 0.7, Eos # (Auto) 0.2, Baso # (Auto) 0.0, PT 10.4, INR 0.93, APTT 25.4, D-Dimer 0.71 H, Sodium 138, Potassium 4.1, C hloride 108 H, Carbon Dioxide 25, Anion Gap 9.1, BUN 15, Creatinine 0.70, Estimated Creat Clear 119, Estimated GFR 85, Est GFR ( Amer) 103, Glucose 110 H, Calcium 9.1, Total Bilirubin 0.5, AST 34, ALT 27, Alkaline Phosphatase 90, Troponin I < 0.01, NT-Pro-B Natriuret Pep 63.6, Total Protein 7.8, Albumin 4.4, Globulin 3.4 H, Albumin/Globulin Ratio 1.3, HCV Ab LIZBETH w/Rflx PCR Qn Negative, HIV Ag/Ab Combo Qual Negative 11/10/24 12:16: Troponin I < 0.01 11/10/24 09:25 11/10/24 09:25 Orders (Tests/Meds): ED MEDICATIONS Discontinued Medications Generic Name Dose Route Start Last Admin Trade Name Freq PRN Reason Stop Dose Admin Aspirin 324 mg 11/10/24 09:16 11/10/24 09:19 Aspirin 81mg Chewable Tablet PO 11/10/24 09:17 324 mg ONCE ONE Administration Iopamidol 70 ml 11/10/24 10:09 11/10/24 10:11 Iopamidol-370 (76%);100ml Bottle IV 11/10/24 10:10 70 ml ONCE ONE Administration Sodium Chloride 40 ml 11/10/24 10:09 11/10/24 10:11 0.9 % Sodium Chloride 50 Ml Vial IV 11/10/24 10:10 40 ml ONCE ONE Administration Sodium Chloride 10 ml 11/10/24 10:09 11/10/24 10:11 Sodium Chloride 0.9% 10ml Syr (Rad Only) IV 11/10/24 10:10 10 ml ONCE ONE Administration ORDERS Category Date Time Status CTA Chest [CT angio chest PE protocol] Stat Cat Scan 11/10/24 10:00 Completed CXR --portable [XR chest portable] Stat Exams 11/10/24 09:16 Completed BNP [NT Pro Brain Natriuretic Pep.] Stat Lab 11/10/24 09:25 Completed CBC w/Auto Diff [Complete Blood Count Auto Diff] Stat Lab 11/10/24 09:25 Completed CMP [Comprehensive Metabolic Panel] Stat Lab 11/10/24 09:25 Completed D-Dimer Stat Lab 11/10/24 09:25 Completed HIV Combo Stat Lab 11/10/24 09:25 Completed Hepatitis C Ab Qual. W/ RFX Stat Lab 11/10/24 09:25 Completed PT INR [Prothrombin Time INR] Stat Lab 11/10/24 09:25 Completed PTT [Activated Partial Thrombo Time] Stat Lab 11/10/24 09:25 Completed Trop I [Troponin I] Stat Lab 11/10/24 09:25 Completed Troponin I Q3H Lab 11/10/24 12:16 Completed Troponin I Q3H Lab 11/10/24 15:30 Ordered ECG Data Tracing #1: I reviewed this ECG and interpreted as documented below: Sinus tachycardia with a ventricular rate of [address] changes concerning for STEMI. ECG initial impression date: 11/10/24 ECG initial impression time: 09:14 Tracing #2: I reviewed this ECG and interpreted as documented below: Normal sinus rhythm with a ventricular rate of 75 bpm. No significant interval change from initial EKG. No STEMI. normal intervals ECG initial impression date: 11/10/24 ECG initial impression time: 10:05 Medical Decision Narrative: In summary, this patient is a 59-year-old female presenting to the Emergency Department for evaluation of chest pain and shortness of breath. Differential diagnoses considered include but are not limited to ACS, dysrhythmia, GERD, PE, aortic pathology, anxiety. Ruling out the most morbid conditions drove assessment. It should be noted patient's history includes breast cancer, prior provoked blood clot which is now reportedly at goal therapy. This complicates all aspects of care by increasing patient's risk for morbidity. She is not currently on any anticoagulation or medications in general I reviewed patient's past medical records and noted prior follow-ups with general surgery for her breast cancer. On exam, the patient is sitting upright in no acute distress. She is mildly anxious appearing and tachycardic and hypertensive on cardiac telemetry. O2 saturation is normal. Cardiopulmonary exam is reassuring. Cannot use PERC criteria to exclude PE, so D-dimer was obtained. Workup included CBC, CMP, troponin, PT, PTT, D-dimer, chest x-ray, EKG. Initial EKG is reassuring with sinus tachycardia but no acute ST changes concerning for ischemia. Patient was loaded with oral aspirin. I independently interpreted chest x-ray prior to the radiologist read and noted no large focal consolidation concerning for pneumonia, no pneumothorax. Please see their read for final interpretation. Labs were obtained that demonstrated reassuring CBC with no significant leukocytosis or anemia, reassuring chemistry with negative initial troponin. D- dimer is mildly elevated at 0.71. Based on this and clinical history, will obtain CTA PE protocol. On reassessment, patient initially was doing well but then had recurrence of diaphoresis and generally feeling unwell at 10 AM. Repeat EKG was obtained that initially showed arm lead reversal, so the third EKG was obtained at 10:02 AM. This demonstrated normal sinus rhythm with a rate of 75 bpm with no significant interval change from initial EKG, no STEMI. CTA PE protocol independently interpreted by myself prior to radiology read demonstrates no large PE, no consolidation, no pulmonary edema. At this time, patient states that she is anxious but otherwise is not having any pain or acute symptoms currently. She is mildly tachycardic and hypertensive still, but otherwise vitals are reassuring. At 10:30 AM, patient was placed in ED observation status pending second troponin to determine whether or not the patient would be appropriate for discharge versus admission. The patient was provided serial reevaluations and cardiac monitoring while awaiting ultimate disposition. On multiple subsequent reassessments, the patient is resting comfortably and is asymptomatic with normal vitals on cardiac telemetry. Second troponin resulted and is also negative, so workup overall has been very reassuring. I considered admission given the patient's symptoms were very concerning, however she states she is feeling better and would like to try going home. I advised that she follow-up very closely with cardiology for further evaluation and management of her chest pain that she experienced today. I gave her strict return precautions should symptoms recur and advise that she return right away. She was discharged after all questions were answered 1315. Total ED observation time was 2 hours and 45 minutes. I had a [id number] visit with the patient when providing discharge instructions. The total time involved in discharging this patient was less than 30 minutes. Critical Care Critical Care Time Critical Care Time: No
[2024-11-10 09:27] VITALS: BP 160/79; PULSE 98; RESP 17; TEMP 37.1; O2SAT 99; BMI 38.0
[2024-11-10 09:31] VITALS: BP 141/73; PULSE 78; RESP 18; O2SAT 97
[2024-11-10 09:31] LABS: Basophils % 0.6 % (0.1-2.0); Eosinophils # 0.2 Kmm3 (0.0-0.4); Eosinophils % 2.7 % (0.1-12.0); Hematocrit 40.1 % (37.0-47.0); Hemoglobin 13.7 g/dL (12.2-16.2); Immature Granulocytes # 0 10^3uL; Immature Granulocytes % 0 %; Lymphocytes # 2.9 K/mm3 (0.7-4.5); Lymphocytes % 46.3 % (10-50); Mean Corpuscular HGB Conc 34.2 g/dL (31.8-35.4); Mean Corpuscular Hemoglobin 31.9 pg (27.0-31.2); Mean Corpuscular Volume 93.3 fl (81-99); Mean Platelet Volume 10.1 fl (7.4-10.4); Monocytes # 0.7 K/mm3 (0.1-1.0); Monocytes % 10.4 % (1.7-9.3); Neutrophils # 2.5 K/mm3 (1.8-7.8); Nucleated Red Blood Cells # 0 10^3/uL; Nucleated Red Blood Cells % 0 %; Platelet Count 249 K/mm3 (142-424); Red Cell Distribution Width 12.7 % (11.5-17.5); Red Cell Distribution Width-SD 43.7 fL; White Blood Count 6.3 K/mm3 (4.8-10.8)
[2024-11-10 09:38] LABS: Albumin Level 4.4 g/dl (3.5-5.0); Chloride 108 mmol/L (98-107); Sodium 138 mmol/L (136-145)
[2024-11-10 09:39] LABS: Potassium 4.1 mmoL/L (3.5-5.1)
[2024-11-10 09:41] LABS: Alanine Aminotransferase 27 U/L (12-78); Anion Gap 9.1 mEq/L (5-15); Aspartate Amino Transferase 34 U/L (14-36); Blood Urea Nitrogen 15 mg/dl (7-17); Carbon Dioxide 25 mmol/L (22.0-30.0); Creatinine Clearance Estimated 119 mL/min (50-200); Estimated Glomerular Filt Rate 85 ml/min (>60); GFR (African American) 103 ML/MIN (>60)
[2024-11-10 09:42] LABS: Activated Partial Thrombo Time 25.4 seconds (22.8-30.6); Albumin/Globulin Ratio 1.3 (1.1-1.8); Alkaline Phosphatase 90 U/L (38-126); Bilirubin,Total 0.5 mg/dl (0.2-1.3); Calcium 9.1 mg/dl (8.4-10.2); Globulin 3.4 g/dL (1.3-3.2); Glucose 110 mg/dl (74-100); INR 0.93 (0.9-1.1); Prothrombin Time 10.4 seconds (10.1-12.5); Total Protein,Serum 7.8 g/dl (6.3-8.2)
[2024-11-10 09:51] LABS: D-Dimer 0.71 ug/mL (0.0-0.5)
[2024-11-10 09:58] LABS: Troponin I < 0.01 ng/ml (0.00-0.034)
--- NOTE | 2024-11-10 10:00 | CT_ITS ---
FINAL REPORT TECHNIQUE: Axial imaging of the chest is obtained after the administration of contrast. 3-D MIP reformatted images were also obtained and reviewed per PE protocol. This study was performed with techniques to keep radiation doses as low as reasonably achievable (ALARA). Individualized dose reduction techniques using automated exposure control or adjustment of mA and/or kV according to the patient's size were employed. CLINICAL HISTORY: chest pain, elevated dimer, h/o breast CA/clot COMPARISON: None FINDINGS: The pulmonary arteries are well filled. There is no evidence of pulmonary embolus. There is no aortic dissection. Heart size is normal. There is no mediastinal, hilar, or axillary lymphadenopathy. There are surgical clips noted in the left axilla secondary to a prior axillary node dissection. The lungs are clear. There is no pleural or pericardial effusion. Limited evaluation of the upper abdomen is without acute abnormality. No acute osseous abnormality. IMPRESSION: No evidence of pulmonary embolism or aortic dissection. Reviewed, Interpreted and Dictated by Kianna Guevara MD Transcribed by Angie Joyner Authenticated and [facility]
[2024-11-10] MEDS: SODIUM CHLORIDE 0.9% 10ML SYR (RAD ONLY) 10 ML IV (10:11)
[2024-11-10] MEDS: IOPAMIDOL-370 (76%);100ML BOTTLE 70 ML IV (10:11)
[2024-11-10] MEDS: 0.9 % SODIUM CHLORIDE 50 ML VIAL 40 ML IV (10:11)
[2024-11-10 10:33] VITALS: BP 120/72; PULSE 71; RESP 18; O2SAT 98
[2024-11-10 10:51] LABS: NT Pro Brain Natriuretic Pep. 63.6 pg/mL (0-125)
--- NOTE | 2024-11-10 10:59 | PC.NURSE ---
patient taken to bathroom
[2024-11-10 11:12] LABS: HIV Combo NEGATIVE (Negative)
[2024-11-10 11:20] LABS: Hepatitis C Ab Qual. W/ RFX NEGATIVE (Negative)
[2024-11-10 12:00] VITALS: BP 126/70; PULSE 66; O2SAT 98
[2024-11-10 12:30] VITALS: BP 124/70; PULSE 66; RESP 18; O2SAT 98
[2024-11-10 13:10] LABS: Troponin I < 0.01 ng/ml (0.00-0.034)
[2024-11-10 13:24] VITALS: BP 119/63; PULSE 69; RESP 15; TEMP 37.1; O2SAT 99
== END 2024-11-10 13:25 | disposition home or self-care (01) ==
PROVIDERS: Emergency Provider Emergency Medicine; PCP Internal Medicine
DX: R07.89 Other chest pain (principal); E78.5 Hyperlipidemia, unspecified; Z85.3 Personal history of malignant neoplasm of breast
CPT/HCPCS: 71045; 71275; 80053; 80074; 83880; 84484; 85025; 85378; 85610; 85730; 87389; 93005; 99285; Q9967

== ENCOUNTER 2024-11-11 09:30 | Outpatient (CLI) | payer OTHER, BC, SELFPAY ==
[2024-11-11 10:17] LABS: Albumin Level 4.5 g/dl (3.5-5.0); Chloride 106 mmol/L (98-107); Potassium 4.2 mmoL/L (3.5-5.1); Sodium 138 mmol/L (136-145)
[2024-11-11 10:19] LABS: Anion Gap 12.2 mEq/L (5-15); Blood Urea Nitrogen 13 mg/dl (7-17); Carbon Dioxide 24 mmol/L (22.0-30.0); Estimated Glomerular Filt Rate 85 ml/min (>60); GFR (African American) 103 ML/MIN (>60)
[2024-11-11 10:20] LABS: Alanine Aminotransferase 27 U/L (12-78); Alkaline Phosphatase 97 U/L (38-126); Aspartate Amino Transferase 32 U/L (14-36); Bilirubin,Direct 0.1 mg/dl (0.0-0.4); Bilirubin,Indirect 0.6 mg/dL (0.0-0.9); Bilirubin,Total 0.7 mg/dl (0.2-1.3); Bilirubin,Unconjugated 0.6 mg/dL (0.0-1.1); Calcium 9.2 mg/dl (8.4-10.2); Chol/HDL Ratio 4.3 (1-3.5); Cholesterol 240 mg/dl (140-200); Glucose 117 mg/dl (74-100); HDL Cholesterol 56 mg/dl (40-60); Total Protein,Serum 7.5 g/dl (6.3-8.2); Triglycerides 131 mg/dl (30-150); VLDL Cholesterol 26 mg/dL (0-40)
[2024-11-11 10:32] LABS: Direct LDL Cholesterol 125.64 mg/dL (100-129)
[2024-11-11 10:43] LABS: Free T4 (Free Thyroxine) 1.21 ng/dl (0.78-2.19)
[2024-11-11 10:56] LABS: Thyroid Stimulating Hormone 1.58 uIU/mL (0.465-4.68)
== END 2024-11-11 23:59 | disposition home or self-care (01) ==
LOC: LAB 09:31
PROVIDERS: PCP Internal Medicine; Visit Provider Nurse Practitioner Family
DX: Z13.220 Encounter for screening for lipoid disorders (principal); Z13.0 Encounter for screening for diseases of the blood and blood-forming organs and certain disorders involving the immune mechanism
CPT/HCPCS: 36415; 80048; 80061; 80076; 82565; 84439; 84443; 84520

== ENCOUNTER 2024-11-15 10:26 | Outpatient (CLI) | payer OTHER, BC, SELFPAY ==
--- OUTSIDE RECORDS SUMMARY | 2024-10-14 09:20 | XMS_ITS | Encounter Summary ---
Author Organization [facility] Address [address] [id number] Care Team Providers Care Safety Relief Valve Technician Name Role Phone Vinny Koo MD Primary Care Provider [phone] Encounter Details Date Type Department Care Team (Latest Contact Info) Description 10/14/2024 9:20 AM EDT - 10/14/2024 11:59 PM EDT Hospital Encounter [facility] [address] [address] Malignant neoplasm of overlapping sites of left breast in female, estrogen receptor positive Discharge Disposition: Home or Self Care Social History Tobacco Use Types Packs/Day Years Used Date Smoking Tobacco: Never Smokeless Tobacco: Never PHQ-2 Answer Date Recorded Patient Health Questionnaire-2 Score 0 10/14/2024 PHQ-9 Answer Date Recorded Patient Health Questionnaire-9 Score 0 10/14/2024 Comments No Sex and Gender Information Value Date Recorded Sex Assigned at Not on file Legal Sex Female 8:13 PM EDT Gender Identity Not on file Sexual Orientation Not on file documented as of this encounter Last Filed Vital Signs Vital Sign Reading Time Taken Comments Blood Pressure - - Pulse - - Temperature - - Respiratory Rate - - Oxygen Saturation - - Inhaled Oxygen Concentration - - Weight 83.9 kg (185 lb) 10/14/2024 9:25 AM EDT Height 152.4 cm (5') 10/14/2024 9:25 AM EDT Body Mass Index 36.13 10/14/2024 9:25 AM EDT documented in this encounter Functional Status * Over the past 2 weeks, how often have you been bothered by any of the following problems? Question Answer Date of Assessment Author Little interest or pleasure in doing things Not at all 10/14/2024 10:14 AM Lizeth Dupont Feeling down, depressed, or hopeless Not at all 10/14/2024 10:14 AM Lizeth Dupont Patient Health Questionnaire -2 Score 0 10/14/2024 10:14 AM Lizeth Dupont * Question Answer Date of Assessment Author Trouble falling or staying a sleep, or sleeping too much Not at all 10/14/2024 10:14 AM Lizeth Dupont Feeling tired or having ruddy le energy Not at all 10/14/2024 10:14 AM Lizeth Dupont Poor appetite or overeating Not at all 10/14/2024 10 :14 AM Lizeth Dupont Feeling bad about yourself - or that you are a failure or have let yourself or your family down Not at all 10/14/2024 10:14 AM Lizeth Dupont Trouble concentrating on thi ngs, such as reading the newspaper or watching television Not at all 10/14/2024 10:14 AM Lizeth Dupont Moving or speaking so slowly that other people could have noticed? Or the opposite - being so fidgety or restless that you have been moving around a lot more than usual. Not at all 10/14/2024 10:14 AM Lizeth Dupont Thoughts that you would be b patricia off or hurting yourself in some way Not at all 10/14/2024 10:14 AM Lizeth Dupont Patient Health Questionnaire -9 Score 0 10/14/2024 10:14 AM Lizeth Dupont * If you checked off any problems on this questionnaire so far, Question Answer Date of Assessment Author How difficult have these problems made it for you to do your work, take care of things at home, or get along with other people? Not difficult at all 10/14/2024 10:14 AM Lizeth Dupont documented as of this encounter Plan of Treatment Upcoming Encounters Date Type Department Care Team (Late st Contact Info) Description 10/27/2025 9:30 AM EDT Appointment [facility] [address] [place] [address] 10/27/2025 10:30 AM EDT Office Visit [facility] [address] [place] [address] Siri Nance, FIRST COAT OPERATOR [address] [facility] [address] [place] [address] documented as of this encounter Procedures Procedure Name Priority Date/Time Associated Diagnosis Comments MAMMOGRAPHY BREAST SCREENING TOMOSYNTHESIS BILATERAL Routine 10/14/2024 9:34 AM EDT Malignant neoplasm of overlapping sites of left breast in female, estrogen receptor positive documented in this encounter Results * Mammography Breast Screening Tomosynthesis Bilateral (10/14/2024 9:34 AM EDT) Anatomical Region Laterality Modality Breast Bilateral Mammography Impressions 10/14/2024 10:00 AM EDT No mammographic evidence of malignancy. BI-RADS CATEGORY: Overall: 2 - Benign RECOMMENDATION: - Routine Screening Mammogram in 1 Year. Patient Lifetime Risk Score of Breast Malignancy: A risk score has not been calculated for this patient. This risk assessment is calculated using the Evelyn Risk Assessment model which may underestimate the lifetime risk of breast malignancy. COMMUNICATION: Computer-aided detection (CAD) and tomosynthesis were utilized by the radiologist in the interpretation of this examination. The results and recommendations will be sent to the patient in a printed lay language version of the imaging report. Narrative 10/14/2024 10:00 AM EDT EXAM: Mammography Breast Screening with Tomosynthesis REASON FOR EXAM: Screening Mammogram HISTORY: Patient is 59 y.o. Hormone history includes control (15 years) and tamoxifen (3 months). Surgical and procedural history include left breast biopsy, 10/2015 (stereotactic-malignant); left lumpectomy, 10/2015; left breast surgery, 10/2015; and left breast lumpectomy, 10/2015. Medical history includes breast cancer, 2016 (left breast) and radiation therapy, 2016 (left breast). COMPARISON STUDIES: Compared to: 10/02/2021 Mammography Breast Screening Tomosynthesis Bilateral at [facility] 10/07/2022 Mammography Breast Screening Tomosynthesis Bilateral at [facility] 10/14/2023 Mammography Breast Screening Tomosynthesis Bilateral at [facility] BREAST COMPOSITION: There are scattered areas of fibroglandular density. FINDINGS: There are post-lumpectomy changes present in the left breast. There is no evidence of suspicious masses, calcifications, or other abnormal findings. Siri Nance APRN IMG BI PROCEDURES Final R esult documented in this encounter Visit Diagnoses Diagnosis Malignant neoplasm of overlapping sites of left breast in female, estrogen receptor positive documented in this encounter Additional Health Concerns Assessment Noted Time PHQ-9 Depression Total Score: 0 10/15/19 25 10:14 AM EDT A fall risk assessment has been complete d for the patient 10/14/2024 10:15 AM EDT documented as of this encounter Care Teams Safety Relief Valve Technician Relationship Specialty Start Date End Date Vinny Koo MD [address] [place] [address] [address] [place] [address] PCP - General 10/20/20 documented as of this encounter
--- OUTSIDE RECORDS SUMMARY | 2024-10-14 11:00 | XMS_ITS | Encounter Summary ---
Author Organization Healthcare Address [address] [id number] Care Team Providers Care Civil Attorney Name Role Phone Vinny Koo MD Primary Care Provider [phone] Encounter Details Date Type Department Care Team (Late st Contact Info) Description 10/14/2024 11:00 AM EDT Office Visit [facility] [address] [facility] [place] [address] Siri Nance, EMPLOYMENT TRAINING SPECIALIST [address] [facility] [address] [place] [address] Malignant neoplasm of overlapping sites of left breast in female, estrogen receptor positive (Primary Dx) Social History Tobacco Use Types Packs/Day Years [...] Sign Reading Time Taken Comments Blood Pressure 126/81 10/14/2024 10:19 AM EDT Pulse 82 10/14/2024 10:19 AM EDT Temperature 36.7 C (98 F) 10/14/2024 10:19 AM EDT Respiratory Rate - - Oxygen Saturation 98% 10/14/2024 10:19 AM EDT Inhaled Oxygen Concentration - - Weight 89.4 kg (197 lb 1.5 oz) 10/14/2024 10:19 AM EDT Height 152.4 cm (5') 10/14/2024 10:19 AM EDT Body Mass Index 38.49 10/14/2024 10:19 AM EDT documented in this encounter Functional [...] Not difficult at all 10/14/2024 10:14 AM EDT Lizeth Jameson documented as of this encounter Miscellaneous Notes * Progress Notes - Siri Nance, EMPLOYMENT TRAINING SPECIALIST - 10/14/2024 11:00 AM EDT ONCOLOGY FOLLOW UP NOTE Patient Name: Gina Flores Date of : 1965 Encounter date: 10/14/2024 Patient Care Team: Vinny Koo MD as PCP - General Chief Complaint: Gina Flores is a 59 y.o. female who presents for follow up on breast cancer. No breast cancerrelated complaints. Current Treatment Plan: Observation Oncology History Overview Note Mrs. Flores was diagnosed with stage IA left hormone receptor positive, HER-2 negative breast cancer. Imaging revealed an area of focal asymmetry in the medial aspect of the left breast. The area waspresent on prior imaging dating back to 2012 but had become more prominent. Biopsy was performed revealing well- differentiated invasive ductal carcinoma. She was referred to the [facility] where a breast MRI revealed uptake at the 9:00 position of the left breast. No other lesions were noted. She underwent a left lumpectomy and sentinel lymph node biopsy. This revealed a 3 mm residualfocus of well- differentiated (grade 1) invasive ductal carcinoma. With the biopsy specimen included(1.1 mm) this is a T1a tumor measuring a total of 4.1 mm. The tumor was strongly ER/NV positive in 100% and 95% of cells respectively. HER-2 was negative by IHC at 1+. The margins of resection were negative. Her postoperative course was complicated by a seroma and wound infection requiring IV anti-b iotics. A PICC line was placed for the administration of anti-biotics but unfortunately she developed a right upper extremity DVT. Thrombosis involved the right axillary and subclavian veins. There was minimal thrombus extending into the inferior internal jugular vein and thrombus around the catheter in the right brachiocephalic vein per outside CT scan report. The PICC line has since been removed. She was started on Xarelto. Given the h/o DVT, we elected to discontinue tamoxifen. She was jose-menopausal at the time of diagnosis (having periods every 4-6 weeks) and therefore Lupron was administered and one month later she started treatment with anastrozole. She completed a course of adjuvant breast radiation. Unfortunately she had significant arthralgias in her hips knees and hands with anastrozole. In September 2016 treatment was changed to exemestane however she discontinued it one month later for the same reasons. Malignant neoplasm of overlapping sites of left breast in female, estrogen receptor positive 10/05/2021 Initial Diagnosis Malignant neoplasm of overlapping sites of left breast in female, estrogen receptor positive (CMS/HCC) Interval History: Denies any specific breast cancer related complaints today. Denies any palpable areas of concern. Denies shortness of breath/cough. Denies headaches/vision changes. Denies any changes in fatigue. Adequate PO intake, denies N/V. No bowel or bladder pattern changes. Reports pain in hips and knees which she attributes to weight- remains stable. 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 She has an area on her back she isseeing dermatology for today. ROS: A comprehensive 14 point ROS was completed and negative aside from what is listed above. Past HX: Reviewed Past Medical History/Past Surgical History, Allergies, Family and Social History; unchanged from last clinic visit. Medications: No current outpatient medications on file. Performance Status: ECO PHYSICAL EXAMINATION: Visit Vitals BP 126/81 (BP Location: Right arm, Patient Position: Sitting) Pulse 82 Temp 36.7 ??C (98 ??F) Ht 1.524 m (5') Wt 89.4 kg (197 lb 1.5 oz) SpO2 98% BMI 38.49 kg/m?? OB Status Postmenopausal Smoking Status Never BSA 1.95 m?? General: Well developed, well-nourished and no acute distress Skin: Skin warm and dry, no rash Neck: Supple, no thyromegaly, no masses Eyes: Pupils are symmetric and reactive to light, conjunctiva and eyelids are normal Ears, Nose, Mouth and Throat: External Nose: no mass or deformity, External ears: no mass or deformity Breast: The left breast is status post lumpectomy. There is scarring at the lumpectomy site. No masses are palpated and no axillary adenopathy is appreciated. The right breast is without dominant mass nipple discharge or skin changes. No axillary adenopathy is noted. Lymphatics: No abnormal adenopathy in neck, supraclavicular areas Heart: Regular sinus rhythm, no murmur, rub or gallop Lungs: Clear to auscultation bilaterally, normal respiratory effort Extremities: No edema Neuro: Grossly nonfocal; no localizing deficits of strength, sensation, or mentation Psychiatric: Normal mood and thought content Radiology: Mammography Breast Screening Tomosynthesis Bilateral Result Date: 10/14/2024 There are post-lumpectomy changes present in the left breast. There is no evidence of suspicious masses, calcifications, or other abnormal findings. Impression: No mammographic evidence of malignancy. BI-RADS CATEGORY: Overall: 2 - Benign I visualized the recent imaging and discussed the current radiology findings with the patient in detail and gave copies of the reports to the patient and answered all questions. ASSESSMENT/PLAN: Gina Flores is a 59 y.o. female with Cancer Staging Malignant neoplasm of overlapping sites of left breast in female, estrogen receptor positive Staging form: Breast, AJCC V7 - Clinical stage from 10/11/2015: Stage IA (T1a, N0, M0) - Unsigned - Continue with yearly mammograms of note she's had significant arthralgias with 2 different aromatase inhibitors as well as a catheter associated DVT while on tamoxifen in the setting of a T1a lesion which was well-differentiated. - RTC with me in 1 year. - Bilateral screening mammogram in 10/2025. 30 minutes was spent on this encounter; including preparing to see the patient, which involved review/interpretation of diagnostics and reports; obtaining and/or reviewing separately obtained history; performing appropriate physical exam; ordering/scheduling medications, tests or procedures; communicating findings and counseling/educating the patient, family and/or caregiver; documentation in EMR; and care coordination. Pt. participated in discussion regarding treatment plan. She agrees with plan and verbalized understanding. All questions answered to her satisfaction. I encouraged her to contact us with any questions/concerns and she has stated she will do so. Siri Nance APRN Advanced Practice Registered Nurse Division of Medical Oncology [address] [place] [address] phone [phone] fax documented in this encounter Plan of Treatment Upcoming Encounters Date Type Department Care Team (Late st Contact Info) Description 10/27/2025 9:30 AM EDT Appointment [facility] [address] [place] [address] 10/27/2025 10:30 AM EDT Office Visit [facility] [address] [facility] [place] [address] Siri Nance D, EMPLOYMENT TRAINING SPECIALIST [address] [facility] [address] [place] [address] Scheduled Orders Name Type Priority Associated Diagnoses Orde r Schedule Mammography Breast Screening Tomosynthesis Bilateral Imaging Routine Malignant neoplasm of overlapping sites of left breast in female, estrogen receptor positive (CMS/HCC) Expected: 10/14/2025 (Approximate), Expires: 04/16/2026 documented as of this encounter Visit Diagnoses Diagnosis Malignant neoplasm of overlapping sites of left breast in female, estrogen receptor positive- Primary documented in this encounter Additional Health Concerns Assessment Noted Time PHQ-9 Depression Total Score: 0 10/15/19 25 10:14 AM EDT A fall risk assessment has been complete d for the patient 10/14/2024 10:15 AM EDT documented as of this encounter Care Teams Civil Attorney Relationship Specialty Start Date End Date Vinny Koo MD [address] [place] [address] [address] [place] [address] PCP - General 10/20/20 documented as of this encounter
--- OUTSIDE RECORDS SUMMARY | 2024-11-15 10:29 | XMS_ITS | Encounter Summary ---
Author Organization Healthcare Address [address] [place] [address] Care Team Providers Care Lead Burner Supervisor Name Role Phone Vinny Koo MD Primary Care Provider Encounter Details Date Type Department Care Team (Latest Contact Info) Description 10/14/2024 Travel Social History Tobacco Use Types Packs/Day Years [...] on file documented as of this encounter Functional Status * Over the past 2 weeks, how often have you been bothered by any of the following problems? Question Answer Date of Assessment Author Little interest or pleasure in doing things Not at all 10/14/2024 10:14 AM EDT Lizeth Jameson Feeling down, depressed, or hopeless Not at all 10/14/2024 10:14 AM EDT Lizeth Jameson Patient Health Questionnaire -2 Score 0 10/14/2024 10:14 AM EDT Lizeth Jameson * Question Answer Date of Assessment Author Trouble falling or staying a sleep, or sleeping too much Not at all 10/14/2024 10:14 AM GEORGET Lizeth Jameson Feeling tired or having ruddy le energy Not at all 10/14/2024 10:14 AM EDT Lizeth Jameson Poor appetite or overeating Not at all 10/14/2024 10 :14 AM EDT Lizeth Jameson Feeling bad about yourself - or that you are a failure or have let yourself or your family down Not at all 10/14/2024 10:14 AM EDT Lizeth Jameson Trouble concentrating on thi ngs, such as reading the newspaper or watching television Not at all 10/14/2024 10:14 AM GEORGET Lizeth Jameson Moving or speaking so slowly that other people could have noticed? Or the opposite - being so fidgety or restless that you have been moving around a lot more than usual. Not at all 10/14/2024 10:14 AM GEORGET Lizeth Jameson Thoughts that you would be b patricia off or hurting yourself in some way Not at all 10/14/2024 10:14 AM Lizeth Dupont Patient Health Questionnaire -9 Score 0 10/14/2024 10:14 AM GEORGET Lizeth Jameson * If you checked off any problems on this questionnaire so far, Question Answer Date of Assessment Author How difficult have these problems made it for you to do your work, take care of things at home, or get along with other people? Not difficult at all 10/14/2024 10:14 AM GEORGET Lizeth Jameson documented as of this encounter Plan of Treatment Upcoming Encounters Date Type Department Care Team (Late st Contact Info) Description 10/27/2025 9:30 AM EDT Appointment [facility] Breast Care Center [facility] [place] [address] [address] [facility] [address] [place] [address] 10/27/2025 10:30 AM EDT Office Visit [facility] Breast Care Center [address] [facility] [place] [address] iSri Nance, DAYCARE TEACHER [address] [facility] [address] [place] [address] documented as of this encounter Visit Diagnoses Not on filedocumented in this encounter Additional Health Concerns Assessment Noted Time PHQ-9 Depression Total Score: 0 10/15/19 25 10:14 AM EDT A fall risk assessment has been complete d for the patient 10/14/2024 10:15 AM EDT documented as of this encounter Care Teams Lead Burner Supervisor Relationship Specialty Start Date End Date Vinny Koo MD [address] [place] [address] PCP - General 10/20/20 documented as of this encounter
--- OUTSIDE RECORDS SUMMARY | 2024-11-15 10:29 | XMS_ITS | Clinical Summary ---
Author Organization [facility] Address [address] [place] [id number] Care Team Providers Care Narcotics Agent Name Role Phone Vinny Koo MD Primary Care Provider Allergies Active Allergy Reactions Criticality Noted Date Comments Codeine Other - please docum ent in the comment field Low 11/22/2015 Medications No known medications Active Problems Problem Noted Date Diagnosed Date Malignant neoplasm of overla pping sites of left breast in female, estrogen receptor positive 10/05/2021 Cancer Staging:Clinical stage from 10/11/2015:Stage IA(T1a, N0, M0) - Unsigned Encounters Date Type Department Care Team Description 10/14/2024 11:00 AM EDT Office Visit [facility] Breast Care Center [address] [facility] [place] [address] Siri Nance, ASSISTANT PRODUCT MANAGER Malignant neoplasm of overlapping sites of left breast in female, estrogen receptor positive (Primary Dx) 10/14/2024 9:20 AM EDT - 10/14/2024 11:59 PM EDT Hospital Encounter [facility] Breast Care [facility] [address] [address] Malignant neoplasm of overlapping sites of left breast in female, estrogen receptor positive Discharge Disposition: Home or Self Care 10/14/2024 Travel from Last 3 Months Social History Tobacco Use Types Packs/Day Years Used Date Smoking Tobacco: Never Smokeless Tobacco: Never Tobacco Cessation:Counseling Given: Not Answered PHQ-2 Answer Date Recorded Patient Health Questionnaire-2 Score 0 10/14/2024 PHQ-9 Answer Date Recorded Patient Health Questionnaire-9 Score 0 10/14/2024 Comments No Sex and Gender Information Value Date Recorded Sex Assigned at Not on file Legal Sex Female 8:13 PM EDT Gender Identity Not on file Sexual Orientation Not on file Last Filed Vital Signs Vital Sign Reading [...] Mass Index 38.49 10/14/2024 10:19 AM EDT Plan of Treatment Upcoming Encounters Date Type Department Care Team ([facility] st Contact Info) Description 10/27/2025 9:30 AM EDT Appointment [facility] [address] [facility] [address] [place] [address] 10/27/2025 10:30 AM EDT Office Visit [facility] Breast Care [place] [address] [facility] [place] [address] Siri Nance, ASSISTANT PRODUCT MANAGER [address] [address] Health Maintenance Due Date Last Done Comments [facility]-HIV Screening 1964 [facility]-Hepatitis C Screening 1964 [facility]-Infant/Child/Adol SDOH Screenings 1964 [facility]-Obesity Intervention 1970 [facility]- SDOH Screenings 1982 [facility]-Adult SDOH Screenings 1982 [facility]-DTaP,Tdap,and Td Vaccine s (1 - Tdap) 1983 [facility]-Pneumococcal Vaccine: 50 + Years (1 of 2 - PCV) 1983 [facility]-Zoster Vaccines (1 of 2) 1983 [facility]-Pap Smear 1985 [facility]-Cervical Cancer Screening 1994 [facility]-HPV/Cotest 1994 CT Colonography 2009 Colonoscopy 2009 FIT-DNA 2009 FIT 2009 FOBT 2009 Sigmoidoscopy 2009 [facility]-Colorectal Cancer Screening 2009 FVL-[id number] Vaccine (3 - Moderna risk series) 08/07/2020 07/10/2020, 06/08/2020 [facility]-Influenza Vaccine (Seaso n Ended) 2025 [facility]-Depression Screening 10/14/2025 025, 10/14/2024 [facility]-RSV Vaccine: 60+ Years o r (1 - 1-dose 75+ series) 2039 HPV Vaccines Aged Out No longer eligi ble based on patient's age to complete this topic [facility]-HIB Vaccines Aged Out No longer e ligible based on patient's age to complete this topic [facility]-Hepatitis A Vaccines Aged Out No longer eligible based on patient's age to complete this topic [facility]-IPV Vaccines Aged Out No longer e ligible based on patient's age to complete this topic [facility]-Rotavirus Vaccines Aged Out No lo nger eligible based on patient's age to complete this topic Procedures Procedure Name Priority Date/Time Associated Diagnosis Comments MAMMOGRAPHY BREAST SCREENING TOMOSYNTHESIS BILATERAL Routine 10/14/2024 9:34 AM EDT Malignant neoplasm of overlapping sites of left breast in female, estrogen receptor positive from Last 3 Months Results * Mammography Breast Screening Tomosynthesis Bilateral [...] 10/02/2021 Mammography Breast Screening Tomosynthesis Bilateral at [facility] 10/07/2022 Mammography Breast Screening Tomosynthesis Bilateral at [facility] 10/14/2023 Mammography Breast Screening Tomosynthesis Bilateral at [facility] BREAST COMPOSITION: There are scattered areas of fibroglandular density. FINDINGS: There are post-lumpectomy changes present in the left breast. There is no evidence of suspicious masses, calcifications, or other abnormal findings. us Siri Nance APRN IMG BI PROCEDURES Final R esult from Last 3 Months Insurance [facility] Care Teams Narcotics Agent Relationship Specialty Start Date End Date Vinny Koo MD [address] [facility] [address] [place] [address] PCP - General 10/20/20
--- NOTE | 2024-11-15 10:30 | CA_ITS ---
APPROVED REPORT EXAM: Comprehensive 2D, Doppler, and color-flow Echocardiogram Contact Person: Kristina Acuña RT(R) Ht: 5 ft 0 in Wt: 194lbs BSA: 1.84 BP: 122/68 mmHg Indications: shortness of breath 2D Dimensions LVEF (Carrera's) 67.00 % F: 54 - 74 LV Volume 96.40 mL F: 46 - 106 LV Volume Index 52.4 mL/m2 F: 29 - 61 LA Volume 33.70 mL LA Volume Index 18.32 mL/m2 (M/F) 16-34 EF AP4 67.40 % EF AP2 64.1 % EF BP 67.0 % GL Strain -19.9 % M-Mode Dimensions RVDd 3.10 cm (0.9-2.6) LA Diam 3.62 cm (1.9-4.0) LVDd 4.01 cm (3.5-5.7) LVDs 2.95 cm (3.5-5.7) IVSd 0.87 cm (0.6-1.1) PWd 0.76 cm (0.6-1.1) EF (Teich) 52.30% FS 26.40% EDV (Teich) 70.40 mL ESV (Teich) 33.60 mL LV Diastology E Decel Time 197 (160-240 msec) E/A Ratio 0.8 Mitral Valve MV E Max Cody. 82.0 (40-130 cm/s) MV A Velocity 106.0 (40-130 cm/s) E/A Ratio 0.77 MV PHT 58.0 ms Tricuspid Valve TR P. Velocity 251.00 cm/s Left Ventricle The left ventricle is normal size. The left ventricular systolic function is normal. The left ventricular ejection fraction is within the normal range. There is increased LV wall thickness. There is normal LV segmental wall motion. Diastolic function is normal. LVEF is 55%. Right Ventricle The right ventricle is normal size. The right ventricular systolic function is normal. Atria Left atrium is mildly dilated. The right atrium size is normal. There is no Doppler evidence of interatrial shunt. Aortic Valve The aortic valve is mildly thickened. There is no aortic valvular stenosis. Trace aortic regurgitation. Mitral Valve The mitral valve is normal in structure. No evidence of mitral valve stenosis. Mild mitral regurgitation. Tricuspid Valve Tricuspid valve is grossly normal in structure and function. Mild tricuspid regurgitation. RVSP is 20-25 mmHg. Pulmonic Valve The pulmonary valve is normal in structure. Mild pulmonic regurgitation. Great Vessels The aortic root is normal in size. IVC is normal in size and collapses >50% with inspiration. Pericardium There is no pericardial effusion. Other Information Study Quality: Fair Conclusion Normal biventricular systolic function. Mild LA dilation. Mild MR, mild TR, mild PI. Electronically signed by : Reina Lo MD 11/23/2024 13:03:28
[2024-11-15 11:18] VITALS: BMI 37.8
[2024-11-15] MEDS: IVABRADINE HCL 7.5MG TABLET PO (11:27)
[2024-11-15] MEDS: METOPROLOL TARTRATE 50MG TABLET PO (11:27)
[2024-11-15 11:30] VITALS: BP 132/74; PULSE 79; RESP 16; O2SAT 99
[2024-11-15 12:18] VITALS: BP 150/83; PULSE 63; RESP 16; O2SAT 100
[2024-11-15] MEDS: NITROGLYCERIN 0.4MG SL TABLET SL (12:18)
[2024-11-15 12:21] VITALS: BP 112/62; PULSE 61; RESP 16; O2SAT 100
[2024-11-15 12:24] VITALS: BP 100/68; PULSE 63; RESP 16; O2SAT 100
[2024-11-15 12:38] VITALS: BP 113/58; PULSE 59; RESP 16; O2SAT 99
[2024-11-15] MEDS: IOPAMIDOL-370 (76%);100ML BOTTLE 85 ML IV (12:42)
[2024-11-15] MEDS: 0.9 % SODIUM CHLORIDE 50 ML VIAL IV (12:42)
[2024-11-15] MEDS: SODIUM CHLORIDE 0.9% 10ML SYR (RAD ONLY) 10 ML IV (12:42)
--- NOTE | 2024-11-15 13:00 | CT_ITS ---
APPROVED REPORT Calendering Machine Operator: CLINICAL INDICATION Chest Pain TECHNIQUE Image Acquisition: A 128 slice MDCT scanner (Herrenschmiedea View) was used for data acquisition. A noncontrast coronary calcium scan was performed. A CT attenuation threshold of 130 Hounsfield units (HU) was used for the detection of calcium in contiguous voxels of 1 sq mm in area to be counted as individual lesions. Bolus tracking in the ascending aorta with a threshold of 180 HU was performed. Immediately afterwards, ECG synchronized cardiac CT was then performed from the cardiac base to apex using retrospective gating with ECG tube current modulation. A total of 85 mL of Isovue 370 mg/mL contrast medium was administered at 5 mL/sec followed by a saline flush using a biphasic injection protocol. A tube voltage of 120 KVp was used. The patient received the following medications prior to the cardiac CT. 75 mg of oral metoprolol 15 mg of oral ivabradine 0.8 mg of sublingual nitroglycerin The average heart rate at the time of acquisition was 56 bpm and regular. Image Reconstruction Transaxial images were reconstructed at 0.67 mm slide thickness. Data was reviewed interactively on an advanced workstation capable of 2 and 3-dimensional displays in all conventional reconstruction formats, including multiplanar reformations, maximum intensity projections, curved multiplanar reformations, and volume rendered reconstructions. When applicable, selected routine images describing the relevant coronary anatomy and pathology were saved and sent to PACS. Complications None Technical Quality Overall image quality was good. Coronary artery opacification was adequate. Total DLP (Dose-Length Product) is 1352.0 mGy-cm. The reported value represents the total of one or more individual components during the CT acquisition of this date and at this time, and as such, the same value may appear in more than one CT report depending on the interpreting/reporting physicians. COMPARISON None FINDINGS CT Coronary Calcium Scoring LMA (Left Main Artery) = 0 LAD (Left Anterior Descending) = 7 LCX (Left Coronary Circumflex) = 0 RCA (Right Coronary Artery) = 0 Total Calcium Score = 7 using the AJ-130 method. The observed calcium score of 7 is at 69th percentile for subjects of the same age, sex, and race/ethnicity. The interpretation of the calcium heart score is based on the following continuum*: 0 = no calcified plaque detected (risk of coronary artery disease is very low ??? less than 5%) 1-10 = calcium detected in extremely minimal levels (risk of coronary diseases is still low ??? less than 10%) 11-100 = mild levels of plaque detected with certainty (mild or minimal narrowing of heart arteries is likely) 101-400 = definite,at least moderate levels of plaque detected (relatively high risk of a heart attack within 3-5 years) >401-999 = extensive levels of plaque detected (high risk of heart attack, high levels of vascular disease are present, high likelihood of at least one significant coronary narrowing) *The calcium heart score quantifies the burden of coronary calcification/plaque in the coronary arteries. The calcium heart score is not able to evaluate the presence or burden of non-calcified (i.e. soft) plaque. There is no identifiable calcification in the aortic valve, mitral annulus or mitral valve, pericardium, or myocardium. Coronary CT Angiography The coronary arterial system is right dominant. Quantitative Stenosis Grading: Left Main (LM): The left main originates normally from the left sinus of Valsalva. The LM trifurcates into the left anterior descending artery, ramus intermedius, and left circumflex artery. The LM is patent with no evidence of atherosclerosis. Left Anterior Descending (LAD) and Diagonal Branches: The LAD gives off 3 diagonal branch(es). There is a focus of calcified plaque in the ostial LAD segment with no evidence of luminal stenosis. There is no evidence of LAD-myocardial bridge. Ramus-intermedius (RI): The RI is patent. Left Circumflex (LCX) and Obtuse Marginals (OM): The LCX gives off 1 Obtuse Marginal (OM) branch(es). The LCX and its branches are patent with no evidence of atherosclerosis. Right Coronary Artery (RCA): The RCA originates normally from the right sinus of Valsalva. The RCA gives off a posterior descending artery (PDA) and posterolateral (PL) branches. The RCA and its branches are patent with no evidence of atherosclerosis. Non-Coronary Cardiac Findings: Analysis of the left ventricular (LV) structure and function was performed after 3-D reconstruction of the LV from axial images, with user-corrected automatic contouring for assessment of LV volumes and user-defined reconstruction from oblique planes for measurement of 3-D cardiac structure and function. -The left ventricle systolic function is normal. -There is no left atrial appendage filling defect. Two right pulmonary veins and two left pulmonary veins drain normally into the left atrium. -No pericardial thickening or calcification. -Central and branch pulmonary arteries in the [id number] are unremarkable. -Thoracic aorta within the visualized thoracic aortic-branches in the [id number] is unremarkable. Extracardiac Structures Hiatal hernia is incidentally noted. IMPRESSION - Presence of coronary calcification with an Agatston score = 7 using the AJ-130 method. -The observed calcium score of 7 is at 69th percentile for subjects of the same age, sex, and race/ethnicity. - No evidence of significant flow-limiting atherosclerosis of the coronary arteries. -CAD-RADS 1. Management recommendations per ACC/AHA guidelines*, as clinically appropriate. -Hiatal hernia is incidentally noted. *Recommendations: CAD RADS 0: Reassurance. Consider non-atherosclerotic causes of chest pain. CAD RADS 1: Consider non-atherosclerotic causes of chest pain. Consider preventive therapy and risk factor modification. CAD RADS 2: Consider non-atherosclerotic causes of chest pain. Consider preventive therapy and risk factor modification, particularly for patients with nonobstructive plaque in multiple segments. CAD RADS 3: Consider further functional testing. Consider symptom-guided anti-ischemic and preventive pharmacotherapy as well as risk factor modification per published guideline statements. CAD RADS 4A: Consider further functional testing or invasive coronary angiography with revascularization per published guideline statements. Consider symptom-guided anti-ischemic and preventive pharmacotherapy as well as risk factor modification per published guideline statements. CAD RADS 4B: Invasive coronary angiography recommended with revascularization per published guideline statements. Consider symptom-guided anti-ischemic and preventive pharmacotherapy as well as risk factor modification per published guideline statements. CAD RADS 5: Consider invasive angiography and/or viability assessment with revascularization per published guideline statements. Consider symptom-guided anti-ischemic and preventive pharmacotherapy as well as risk factor modification per published guideline statements. CRITICAL RESULT None COMMUNICATION Per this written report The coronary and cardiac findings of this CCTA were reviewed, reported, and signed by Salinas Lo MD (Emergency Telecommunications Dispatcher) Conclusion Electronically signed by : Reina Lo MD 11/16/2024 14:00:56
== END 2024-11-15 12:40 | disposition home or self-care (01) ==
LOC: RT 10:26 → RAD 11:08
PROVIDERS: PCP Internal Medicine; Visit Provider Nurse Practitioner Family
DX: I25.10 Atherosclerotic heart disease of native coronary artery without angina pectoris (principal); K44.9 Diaphragmatic hernia without obstruction or gangrene; R00.2 Palpitations; R94.31 Abnormal electrocardiogram [ECG] [EKG]
CPT/HCPCS: 75574; 93306; Q9967

== ENCOUNTER 2024-11-16 08:54 | Outpatient (CLI) | payer OTHER, BC, SELFPAY ==
--- OUTSIDE RECORDS SUMMARY | 2024-10-14 09:20 | XMS_ITS | Encounter Summary ---
Author Organization [facility] Address [address] [id number] Care Team Providers Care Cloth Washer Back Tender Name Role Phone Vinny Koo MD Primary Care Provider [phone] Encounter Details Date Type Department Care Team (Latest Contact Info) Description 10/14/2024 9:20 AM EDT - 10/14/2024 11:59 PM EDT Hospital Encounter [facility] [address] [address] Malignant neoplasm of overlapping sites of left [...] Breast Care Center [facility] [address] [place] [address] 10/27/2025 10:30 AM EDT Office Visit [facility] [address] [place] [address] Siri Nance, PLANER SETUP OPERATOR [address] [facility] [address] [place] [address] documented as of this encounter [...] 10/02/2021 Mammography Breast Screening Tomosynthesis Bilateral at [facility] 10/07/2022 Mammography Breast Screening Tomosynthesis Bilateral at [facility] 10/14/2023 Mammography Breast Screening Tomosynthesis Bilateral at [facility] BREAST COMPOSITION: There are scattered areas [...] documented as of this encounter Care Teams Cloth Washer Back Tender Relationship Specialty Start Date End Date Vinny Koo MD [address] [place] [address] [address] [place] [address] PCP - General 10/20/20 documented as of this encounter
--- OUTSIDE RECORDS SUMMARY | 2024-10-14 11:00 | XMS_ITS | Encounter Summary ---
Author Organization Healthcare Address [address] [id number] Care Team Providers Care [employer]quis[employer] Logistics Analyst Name Role Phone Vinny Koo MD Primary Care Provider [phone] Encounter Details Date Type Department Care Team (Late st Contact Info) Description 10/14/2024 11:00 AM EDT Office Visit [facility] [address] [facility] [place] [address] Siri Nance, HUMAN SERVICE SPECIALIST [address] [facility] [address] [place] [address] Malignant neoplasm of overlapping sites of left [...] Notes * Progress Notes - Siri Nance, HUMAN SERVICE SPECIALIST - 10/14/2024 11:00 AM EDT ONCOLOGY [...] ductal carcinoma. She was referred to the [facility] where a breast MRI revealed uptake at [...] of 4.1 mm. The tumor was strongly ER/SC positive in 100% and 95% of cells [...] Practice Registered Nurse Division of Medical Oncology [address] [place] [address] phone [phone] fax documented in this encounter Plan of Treatment Upcoming Encounters Date Type Department Care Team (Late st Contact Info) Description 10/27/2025 9:30 AM EDT Appointment [facility] [address] [place] [address] 10/27/2025 10:30 AM EDT Office Visit [facility] [address] [facility] [place] [address] Siri Nacne D, HUMAN SERVICE SPECIALIST [address] [facility] [address] [place] [address] Scheduled Orders Name Type Priority Associated Diagnoses [...] documented as of this encounter Care Teams Acquisitions Logistics Analyst Relationship Specialty Start Date End Date Vinny Koo MD [address] [place] [address] [address] [place] [address] PCP - General 10/20/20 documented as of this encounter
--- OUTSIDE RECORDS SUMMARY | 2024-11-16 08:58 | XMS_ITS | Encounter Summary ---
Author Organization Healthcare Address [address] [place] [address] Care Team Providers Care Osteologist Name Role Phone Vinny Koo MD Primary Care Provider [phone] Encounter Details Date Type Department Care Team [...] Questionnaire -2 Score 0 10/14/2024 10:14 AM GEORGET Lizeth Jameson * Question Answer Date of [...] Info) Description 10/27/2025 9:30 AM EDT Appointment [facility] [place] [address] [address] [facility] [address] [place] [address] 10/27/2025 10:30 AM EDT Office Visit [facility] [address] [facility], [address] [place] [address] Siri Nance, STRESS ANALYST [address] [facility] [address] [place] [address] documented as of this encounter Visit Diagnoses Not on filedocumented in this encounter Additional Health Concerns Assessment Noted Time PHQ-9 Depression Total Score: 0 10/15/19 25 10:14 AM EDT A fall risk assessment has been complete d for the patient 10/14/2024 10:15 AM EDT documented as of this encounter Care Teams Osteologist Relationship Specialty Start Date End Date Vinny Koo MD [address] [place] [address] PCP - General 10/20/20 documented as of this encounter
--- OUTSIDE RECORDS SUMMARY | 2024-11-16 08:58 | XMS_ITS | Clinical Summary ---
Author Organization [facility] Address [address] [id number] Care Team Providers Care Cell Phone Repair Technician Name Role Phone Vinny Koo MD Primary Care Provider [phone] Allergies Active Allergy Reactions Criticality Noted Date [...] Description 10/14/2024 11:00 AM EDT Office Visit [facility] Breast Care Center [address] [facility], [address]nd [place] [address] Siri Nance, YARD WORKER Malignant neoplasm of overlapping sites of left breast in female, estrogen receptor positive (Primary Dx) 10/14/2024 9:20 AM EDT - 10/14/2024 11:59 PM EDT Hospital Encounter [facility] Breast [facility] [address] [address] Malignant neoplasm of overlapping sites of left [...] Upcoming Encounters Date Type Department Care Team ([facility] st Contact Info) Description 10/27/2025 9:30 AM EDT Appointment [facility] [address] [facility] [address] [place] [address] 10/27/2025 10:30 AM EDT Office Visit [facility] Breast Care [place] [address] [facility], [address] [place] [address] Siri Nance, YARD WORKER [address] [address] Health Maintenance Due Date Last Done Comments [...] 2009 Sigmoidoscopy 2009 [facility]-Colorectal Cancer Screening 2009 [id number] Vaccine (3 - Moderna risk series) 08/07/2020 [...] 10/02/2021 Mammography Breast Screening Tomosynthesis Bilateral at [facility] 10/07/2022 Mammography Breast Screening Tomosynthesis Bilateral at [facility] 10/14/2023 Mammography Breast Screening Tomosynthesis Bilateral at [facility] BREAST COMPOSITION: There are scattered areas of fibroglandular density. FINDINGS: There are post-lumpectomy changes present in the left breast. There is no evidence of suspicious masses, calcifications, or other abnormal findings. us Siri Nance APRN IMG BI PROCEDURES Final R esult from Last 3 Months Insurance [facility] Care Teams Cell Phone Repair Technician Relationship Specialty Start Date End Date Vinny Koo MD [address] [facility] [address] [place] [address] PCP - General 10/20/20
--- NOTE | 2024-11-16 09:00 | US_ITS ---
FINAL REPORT CLINICAL HISTORY: screening FINDINGS: Limited sonographic images of the abdominal aorta were obtained. The aorta measures up to 1.8 cm. There is no evidence of abdominal aortic aneurysm. IMPRESSION: No F's of abdominal aortic aneurysm. Reviewed, Interpreted and Dictated by Everardo Harley MD Transcribed by Lenka Becker Authenticated and [facility]
== END 2024-11-16 23:59 | disposition home or self-care (01) ==
LOC: RAD 08:54
PROVIDERS: PCP Internal Medicine; Visit Provider Nurse Practitioner Family
DX: R00.2 Palpitations (principal); R94.31 Abnormal electrocardiogram [ECG] [EKG]
CPT/HCPCS: 76706

== ENCOUNTER 2024-12-15 10:01 | Outpatient (CLI) | payer OTHER, BC, SELFPAY ==
--- NOTE | 2024-12-15 10:00 | CA_ITS ---
FINAL REPORT TECHNIQUE: Bilateral lower extremity venous duplex was performed with augmentation and compression. CLINICAL HISTORY: Elevated D-dimer, Trauma to bilateral calves, object fell on back of both legs, bruised and tender. Previous SVT. Prev DVT in PICC line yrs ago. FINDINGS: Proper flow is seen throughout the deep venous systems bilaterally. There is no evidence of deep venous thrombosis. IMPRESSION: No evidence of deep venous thrombosis. Reviewed, Interpreted and Dictated by Everardo Harley MD Transcribed by Trina Gomez Authenticated and [facility]
--- OUTSIDE RECORDS SUMMARY | 2024-12-15 10:14 | XMS_ITS | Clinical Summary ---
Author Organization [facility] Address [address] [id number] Care Team Providers Care Dividend Deposit Voucher Clerk Name Role Phone Vinny Koo MD Primary Care Provider [phone] Allergies Active Allergy Reactions Criticality Noted Date [...] Description 10/14/2024 11:00 AM EDT Office Visit [facility] Breast Care Center [address] [facility], [address]nd [place] [address] Siri Nance, LEAD LEVEL DESIGNER Malignant neoplasm of overlapping sites of left breast in female, estrogen receptor positive (Primary Dx) 10/14/2024 9:20 AM EDT - 10/14/2024 11:59 PM EDT Hospital Encounter [facility] Breast Care [facility] Comprehensive [facility] [address] [address] Malignant neoplasm of overlapping sites of left [...] Breast Care Center [facility] [address] [facility] [address] [place] [address] 10/27/2025 10:30 AM EDT Office Visit [facility] Breast Care [place] [address] [facility], [address] [place] [address] Siri Nance, LEAD LEVEL DESIGNER [address] [address] Health Maintenance Due Date Last Done Comments [...] 2009 Sigmoidoscopy 2009 [facility]-Colorectal Cancer Screening 2009 [id number] Vaccine (3 - Moderna risk series) 08/07/2020 07/10/2020, 06/08/2020 [facility]-Influenza Vaccine (#1) 2025 [facility]-Depression Screening 10/14/2025 025, 10/14/2024 [facility]-RSV [...] Breast Screening Tomosynthesis Bilateral at [facility] 10/07/2022 Mammography Breast Screening Tomosynthesis Bilateral at [facility] 10/14/2023 Mammography Breast Screening Tomosynthesis Bilateral at [facility] BREAST COMPOSITION: There are scattered areas of fibroglandular density. FINDINGS: There are post-lumpectomy changes present in the left breast. There is no evidence of suspicious masses, calcifications, or other abnormal findings. Siri Nance APRN IMG BI PROCEDURES Final R esult from Last 3 Months Insurance [facility] Care Teams Dividend Deposit Voucher Clerk Relationship Specialty Start Date End Date Vinny Koo MD [facility] [address] [place] [address] PCP - General 10/20/20
== END 2024-12-15 23:59 | disposition home or self-care (01) ==
LOC: RT 10:02
PROVIDERS: PCP Internal Medicine; Visit Provider Nurse Practitioner Family
DX: E78.49 Other hyperlipidemia (principal); R79.89 Other specified abnormal findings of blood chemistry; S89.91XA Unspecified injury of right lower leg, initial encounter; S89.92XA Unspecified injury of left lower leg, initial encounter; W20.8XXA Other cause of strike by thrown, projected or falling object, initial encounter; Z86.718 Personal history of other venous thrombosis and embolism
CPT/HCPCS: 93970

== ENCOUNTER 2025-04-20 06:41 | Outpatient (CLI) | payer OTHER, BC, SELFPAY ==
--- OUTSIDE RECORDS SUMMARY | 2025-04-20 06:44 | XMS_ITS ---
Author Organization Unknown ENCOUNTERS Encounter Performer Location Date Diagnosis Diagnosis Status Pre Admit [place] [address] [place] [address] [id number] Emergency [place] [address] [place] [address] [id number] [facility] [place] [address] [place] [address] [id number] [facility] Pre Admit [place] [address] [place] [address] [id number] *Note: Encounters from your own facility or health system may be excluded. Allergies, Adverse Reactions, Alerts Allergen Type Severity Identification Date ashleigh drug allergy 2 [id number] Medications Name Date Quantity Days Supplied GPI Number
--- OUTSIDE RECORDS SUMMARY | 2025-04-20 06:45 | XMS_ITS | Clinical Summary ---
Author Organization Healthcare Address [address] [place] [address] Care Team Providers Care Rail Splitter Name Role Phone Vinny Koo MD Primary Care Provider [phone] Allergies Active Allergy Reactions Criticality Noted Date Comments Codeine Other - please docum ent in the comment field Low 11/22/2015 Medications No known medications Active Problems Problem Noted Date Diagnosed Date Malignant neoplasm of overla pping sites of left breast in female, estrogen receptor positive 10/05/2021 Cancer Staging:Clinical stage from 10/11/2015:Stage IA(T1a, N0, M0) - Unsigned Social History Tobacco Use Types Packs/Day Years [...] Breast Care Center [facility] [address] [place] [address] 10/27/2025 10:30 AM EDT Office Visit [facility] [address] [facility], [address]nd [place] [address] Siri Nance, PRODUCTION UTILITY WORKER [address] [facility] [address] [place] [address] Health Maintenance Due Date Last Done Comments [facility]-HIV Screening 1964 [facility]-Hepatitis C Screening 1964 [facility]-/Child/Adol SDOH Screenings 1964 [facility]-Obesity Intervention 1970 [facility]- [...] 2009 Sigmoidoscopy 2009 [facility]-Colorectal Cancer Screening 2009 [id number] Vaccine (3 - Moderna risk series) 08/07/2020 [...] on patient's age to complete this topic Insurance [facility] Care Teams Rail Splitter Relationship Specialty Start Date End Date Vinny Koo MD [address] [facility] [address] [place] [address] PCP - General 10/20/20
[2025-04-20 08:10] LABS: Alanine Aminotransferase 25 U/L (12-78); Albumin Level 4.3 g/dl (3.5-5.0); Alkaline Phosphatase 87 U/L (38-126); Aspartate Amino Transferase 28 U/L (14-36); Bilirubin,Direct 0.0 mg/dl (0.0-0.4); Bilirubin,Indirect 0.6 mg/dL (0.0-0.9); Bilirubin,Total 0.6 mg/dl (0.2-1.3); Bilirubin,Unconjugated 0.5 mg/dL (0.0-1.1); Cholesterol 159 mg/dl (140-200); HDL Cholesterol 65 mg/dl (40-60); Total Protein,Serum 7.1 g/dl (6.3-8.2); Triglycerides 87 mg/dl (30-150)
== END 2025-04-20 23:59 | disposition home or self-care (01) ==
LOC: LAB 06:42
PROVIDERS: PCP Internal Medicine; Visit Provider Nurse Practitioner Family
DX: E78.49 Other hyperlipidemia (principal); R79.89 Other specified abnormal findings of blood chemistry; Z86.718 Personal history of other venous thrombosis and embolism
CPT/HCPCS: 36415; 80061; 80076